=== PATIENT | male | born 1945 | race Caucasian/White ===

== ENCOUNTER → 2016-07-11 | Outpatient (CLI) | payer MEDICARE, OTHER ==
--- NOTE | 2016-07-11 11:12 | XR ---
EXAMINATION TYPE: XR chest 2V DATE OF EXAM: 07/11/2016 11:04 AM COMPARISON: NONE HISTORY: Shortness of breath TECHNIQUE: Frontal and lateral views of the chest are obtained. FINDINGS: Scattered senescent parenchymal changes noted. Hyperinflation compatible with COPD. No evidence for infiltrate. No evidence for atelectasis. Heart size is stable. Mediastinal structures are stable and grossly unremarkable. No evidence for hilar prominence. Degenerative changes dorsal spine. IMPRESSION: 1. No evidence for acute pulmonary disease.
[2016-07-11 11:15] LABS: Basophils # (A) 0.1 k/uL (0-0.2); Basophils % (A) 1 %; CH 31.2; CHCM 35.1; Eosinophils # (A) 0.2 k/uL (0-0.7); Eosinophils % (A) 2 %; HCT 48.4 % (39.0-53.0); HDW 2.73; HGB 16.9 gm/dL (13.0-17.5); Luc # (Auto) 0.24; Luc % (Auto) 2; Lymphocytes # (A) 2.9 k/uL (1.0-4.8); Lymphocytes % (A) 28 %; MCH 31.3 pg (25.0-35.0); MCV 89.3 fL (80.0-100.0); Mean Platelet Volume 8.4; Monocytes # (A) 0.7 k/uL (0-1.0); Monocytes % (A) 7 %; Neutrophils # (A) 6.1 k/uL (1.3-7.7); Neutrophils % (A) 61 %; RBC 5.42 m/uL (4.30-5.90); RDW 14.1 % (11.5-15.5); WBC 10.1 k/uL (3.8-10.6); WBC (Perox) 10.03
[2016-07-11 11:27] LABS: Partial Thromboplastin Time 23.2 sec (22.0-30.0); Prothrombin Time 10.1 sec (9.0-12.0)
[2016-07-11 11:55] LABS: Potassium 4.7 mmol/L (3.5-5.1)
== END ==
LOC: LABPAT 10:31
PROVIDERS: ATTEND Orthopaedic Surgery
DX: Z01.818 Encounter for other preprocedural examination (principal)
CPT/HCPCS: 71020; 80051; 85025; 85610; 85730; 87070

== ENCOUNTER 2016-07-31 08:00 | Inpatient (IN) | payer MEDICARE, OTHER ==
[2016-07-27 09:43] VITALS: BMI 25.3
--- NOTE | 2016-07-30 16:48 | HP ---
DATE OF ADMISSION: 07/31/2016 CHIEF COMPLAINT: Right greater than the left knee pain. HISTORY OF PRESENT ILLNESS: The patient is a 70-year-old retired gentleman who presents with progressive right knee pain for the past several years. It has worsened recently. He notes giving way along with swelling. He has had previous injections with only partial temporary relief. He notes the pain limits his normal function and activities. PAST MEDICAL HISTORY: Significant for hypercholesterolemia, hypertension and arthritis. PAST SURGICAL HISTORY: Negative. CURRENT MEDICATIONS: 1. Aleve. 2. Aspirin. 3. Gabapentin. 4. Hydrochlorothiazide. 5. Lipitor. 6. Losartan. 7. Metoprolol. He denies drug allergies. FAMILY HISTORY: Significant for cancer and heart disease. SOCIAL HISTORY: Significant for 1/2 pack per day tobacco use. Sixteen-point review of systems otherwise reviewed and is noncontributory. On examination, the patient is approximately 5 foot 8, 260 pounds of endomorphic habitus. HEENT exam is nonfocal. Neck is supple. He has painless passive motion of the right hip. Straight leg raise is negative. Active motion of the right knee -8 to 115 degrees of flexion. He is tender about the medial joint line. He has mild effusion. Collaterals are stable, Brent's negative, Kristian's is equivocal. He has genu varum alignment. His distal neurovascular exam appears intact in the right lower extremity. Weight-bearing notch, lateral, and merchant views of the right knee obtained in the office show severe medial and patellofemoral compartment narrowing. IMPRESSION: 1. Right knee severe medial and patellofemoral compartment osteoarthrosis. 2. Increased body mass index. RECOMMENDATIONS: I talked to the patient at length regarding his treatment options. At this point he is quite symptomatic because of pain related to his osteoarthrosis despite extensive conservative measures. After thorough discussion, he opts to proceed with surgery. We will plan to proceed with right total knee arthroplasty. Risks and benefits are discussed at length in layman terms. We will likely institute DVT prophylaxis postoperatively.
[~2016-07-31 08:00] MED LIST: ACETAMINOPHEN TAB 500 MG TAB PO ONE; DEXAMETHASONE SOD PHOSPHATE 10 MG/ML 1 ML VIAL IV ONE; HYDROmorphone 1 MG/ML 1 ML SYRINGE IVP PRN; MELOXICAM 7.5 MG TAB PO ONE; MIDAZOLAM 2 MG/2 ML VIAL IV PRN; ONDANSETRON 4 MG/2 ML VIAL IVP ONE; TRANEXAMIC ACID 1,000 MG in SODIUM CHLORIDE 0.9% 100 ML IVPB ONE; ceFAZolin 2 GM in SODIUM CHLORIDE 0.9% 100 ML IVPB ONE
[2016-07-31] MEDS ORDERED: LIDOCAINE 1% 20 ML VIAL (10MG/ML) FOR IV START INTRADERMA ONE (09:22)
[2016-07-31] MEDS: LACTATED RINGERS 1,000 ML IV SCH (09:22)
[2016-07-31] MEDS ORDERED: ROPIVACAINE 246.25 MG, EPINEPHrine 0.5 MG, KETOROLAC 30 MG, cloNIDine HCL/PF 80 MCG, WA... MISCELLANE ONE ×5 (10:16)
[2016-07-31] MEDS ORDERED: ePHEDrine 50 MG/ML 1 ML AMP ONE (10:57)
[2016-07-31] MEDS ORDERED: fentaNYL (PF) 50 MCG/ML 2 ML AMP ONE (10:57)
[2016-07-31] MEDS ORDERED: TRANEXAMIC ACID 1,000 MG/10 ML VIAL ONE (10:57)
[2016-07-31] MEDS ORDERED: SODIUM CHLORIDE 0.9% 100 ML BAG ONE (10:57)
[2016-07-31] MEDS ORDERED: PROPOFOL 10 MG/ML 20 ML VIAL IV ONE (10:57)
[2016-07-31] MEDS ORDERED: MIDAZOLAM 2 MG/2 ML VIAL ONE (10:57)
[2016-07-31] MEDS ORDERED: GLYCOPYRROLATE 0.2 MG/ML 2 ML VIAL ONE (10:57)
[2016-07-31] MEDS ORDERED: ROPIVACAINE 1,100 MG, SODIUM CHLORIDE 0.9% 330 ML MISCELLANE PRN ×2 (11:19)
[2016-07-31] MEDS ORDERED: ceFAZolin 3,000 MG in SODIUM CHLORIDE 0.9% IRRIGATIO 3,000 ML IRRIGATION ONE (11:36)
[2016-07-31] MEDS ORDERED: LACTATED RINGERS 1,000 ML IV ONE (11:38)
[2016-07-31] MEDS ORDERED: NALOXONE 0.4 MG/ML 1 ML VIAL IV PRN (12:52)
[2016-07-31] MEDS ORDERED: ONDANSETRON 4 MG/2 ML VIAL IVP PRN (12:52)
[2016-07-31] MEDS ORDERED: ACETAMINOPHEN TAB 325 MG TAB PO PRN (12:52)
[2016-07-31] MEDS ORDERED: HYDROcodone/APAP 7.5-325MG 1 EACH TAB PO PRN (12:52)
[2016-07-31] MEDS ORDERED: HYDROmorphone 1 MG/ML 1 ML SYRINGE IVP PRN (12:52)
[2016-07-31] MEDS ORDERED: MAGNESIUM HYDROXIDE 2,400 MG/10 ML CUP PO PRN (12:52)
--- NOTE | 2016-07-31 13:25 | P.OP ---
Date of Procedure: 07/31/16 Preoperative Diagnosis: Right knee severe tricompartmental osteoarthrosis-primary Postoperative Diagnosis: Same Procedure(s) Performed: Right total knee arthroplasty/cemented/cruciate retaining Implants: Depuy Attune CR size 7 cemented femoral component, size 6 cemented tibial component, 9 mm articular surface, 38 mm cemented patellar component. This is a cruciate retaining implant. Anesthesia: regional, local, spinal Surgeon: Demetri Gray Dressing Room Porter #1: Gus Bejarano Estimated Blood Loss (ml): 100 Pathology: other (Bone fragments) Condition: stable Disposition: PACU Indications for Procedure: The patient is a 70-year-old male who presents with progressive right knee pain secondary to osteoarthrosis despite conservative measures. A discussion of the risks and benefits of operative intervention versus continued conservative measures was made with the patient. He opted to proceed. Specific risks of surgery to include infection, neurovascular injury, development of blood clots, possible component loosening, possible component failure need for subsequent procedures was discussed. Informed consent was obtained. Operative Findings: As below Description of Procedure: The patient was brought to the operating room, and after induction of spinal anesthesia the right lower extremity was prepped and draped in normal fashion. The tourniquet was inflated to 270 mmHg. A longitudinal incision extending 3 finger breaths above the superior pole of patella extending to the medial aspect the tibial tubercle was then made. The skin and subcu tissues were divided sharply. A medial parapatellar arthrotomy was performed. The medial soft tissues to include the superficial and deep portions of the medial collateral ligament as well as the medial hamstring tendons were elevated subperiosteally. I felt this was adequate medial release. The patella was everted. A portion of the retropatellar fat pad was excised. The knee was then flexed. The anterior cruciate ligament was sacrificed. Blunt retractors were placed. A starting hole was made in the distal femur 1 cm anterior to the posterior cruciate ligament origin. An intramedullary femoral guide was then gently inserted planning on 5 valgus distal cut with 9 mm distal resection. The cutting block was pinned in place. The distal cut was then made. The posterior referencing sizing guide was utilized. 3 of external rotation was built into the system and verified off the trans-epicondylar axis and the posterior condyles. A felt size 7 was most appropriate. The cutting block was pinned in place. The anterior, posterior, and chamfer cuts were then made. The bony fragments were removed. The slot cut was made with the appropriate guide. The size 7 femoral components placed and was fully seated. There is good anterior to posterior and medial to lateral fit. The peg holes were drilled. The trial component was removed. Attention was then paid towards preparing the proximal tibia. An extra medullary guide was utilized in line with the tibial shaft and second metatarsal distally. I planned on 7 posterior slope. I planned on 2 mm resection from the medial compartment. The cutting block was pinned in place. The posterior cruciate ligament was protected with a retractor. Proximal tibial cut was made. The bone was removed in one fragment. The tibia sized most appropriate size 6. The flexion and extension gaps were checked and felt to be tight. Therefore an additional 2 mm was resected utilizing the cutting block. The bone was removed. The remnants of the medial and lateral menisci were excised at the capsular junction with electrocautery. The posterior osteophytes of the distal femur were carefully removed with a curved osteotome. The trial femoral and tibial components were placed along with a 9 mm articular surface. I was able to obtain full flexion and extension with good stability with varus and valgus stress. After several flexion and extension cycles the tibial rotation was marked with electrocautery in line with the medial one third of the tibial tubercle. Attention was then paid towards preparing the patella. A patella reamer was utilized taking senna 14 mm of bone stock. A good flush cut was made. The patella sized most probably a 38 mm. The peg holes were drilled. The trial components placed. The knee was taken through range of motion. I had good patellofemoral tracking with no hands technique. The trial components were then removed. The tibia was prepared in the appropriate rotation with the appropriate drill and keel punch. Several additional holes made the proximal medial tibia to facilitate cement interdigitation. Pulsatile lavage was then used. The bony surfaces were dried. The flexion and extension gaps were checked and felt to be symmetric. The posterior soft tissues were injected with ropivacaine. The tibial component was then cemented in placed and was fully seated. Excess cement was removed. The femoral component was cemented in placed and was fully seated. Excess cement was removed. The trial 9 mm articular surface was placed and the knee was put in full extension. The patella component cemented in placed and was fully seated. After the cement had sufficiently hardened, the knee was again taken through range of motion. Again I felt there was full range of motion and good stability with varus / valgus stress. The trial articular surface was removed and the final one inserted. This was fully seated. Care taken to avoid any soft tissue interposition. Pulsatile lavage was again utilized. A medial parapatellar arthrotomy was closed with #2 Ethibond suture. The tourniquet was deflated with approximately 70 minutes total tourniquet time. Final hemostasis was obtained with electrocautery. The second dose of IV TXA was given. The subcu changed tissues were reapproximated with interrupted 2-0 Vicryl sutures. The skin was reapproximated with 3-0 subcuticular strata fix suture. Skin tape and adhesive was applied. A sterile dressing was applied. The patient was awoken from sedation and transferred to the recovery room in good condition. Blood loss was estimated at 100 mL. No complications were incurred. Sponge and needle counts were correct at the end the case.
--- NOTE | 2016-07-31 13:56 | XR ---
EXAMINATION TYPE: XR knee limited RT DATE OF EXAM: 07/31/2016 1:33 PM COMPARISON: NONE TECHNIQUE: Two views submitted HISTORY: Post op FINDINGS: There is a prosthetic knee in near anatomic alignment. There is soft tissue edema and emphysema. Samano rgical drain noted. IMPRESSION: 1. Postoperative change. Appears in near-anatomic alignment
[2016-07-31] MEDS: traMADol 50 MG TAB PO SCH ×3 (14:38→21:36)
[2016-07-31 16:14] VITALS: RESP 16
[2016-07-31] MEDS: ceFAZolin 2 GM in SODIUM CHLORIDE 0.9% 100 ML IVPB SCH (17:56)
--- NOTE | 2016-07-31 19:31 | P.ONQ ---
Anesthesiology Proc Note - PNB - Peripheral Nerve Block Performed Right Adductor Canal Indication: Acute Post-Operative Pain, Dx/Pain Location (Right Knee) Specifically requested for management of pain by : Demetri Gray Sedation Type: Sedate with meaningful contact maintained Preparation: Sterile Dressing Position: Supine Catheter: Indwelling Needle Types: Touhy Needle Size: 100mm (4") Needle Gauge: 21, Other (see comment) (Pajunk Needle) Technique: Ultrasound Injectate: 0.5% Ropivacaine (see comment for volume) (30 cc) Blood Aspirated: No Pain Paresthesia on Injection Noted: No Resistance on Injection: Normal Events: Uneventful and Well Tolerated
[2016-07-31] MEDS ORDERED: SENNOSIDES-DOCUSATE SODIUM 1 EACH TAB PO SCH (21:00)
[2016-07-31] MEDS: HYDROcodone/APAP 7.5-325MG 1 EACH TAB PO PRN (21:26)
[2016-07-31] MEDS: GABAPENTIN 400 MG CAP PO SCH (21:34)
--- NOTE | 2016-07-31 23:56 | CONS ---
DATE OF CONSULTATION: 07/31/2016 REASON FOR CONSULTATION: Medical management requested by Dr. Gray. CONSULTATION: This is a very pleasant 70-year-old patient of Dr. Smith who has undergone right total knee arthroplasty. Post-procedure no nausea or vomiting. No chest pain or dizziness. Patient's chronic stable medical conditions include hyperlipidemia, hypertension, rheumatoid arthritis, umbilical hernia. REVIEW OF SYSTEMS: CONSTITUTIONAL: Tired. HEENT: None. RESPIRATORY: None. CARDIOVASCULAR: None. GASTROINTESTINAL: None. GENITOURINARY: None. MUSCULOSKELETAL: Pain in the joints. DERMATOLOGICAL: None. HEMATOLOGICAL: None. LYMPHATIC: None. PSYCHIATRY: None. NEUROLOGICAL: None. PAST HISTORY: 1. Hypertension. 2. Hyperlipidemia. 3. Rheumatoid arthritis. 4. Umbilical hernia. PAST SURGICAL HISTORY: Wound closure on the lower right thigh from injury. SOCIAL HISTORY: Patient has smoked about three-quarter a pack a day for more than 40 years. Alcohol occasionally. Retired. Lives with his sister. FAMILY HISTORY: Cancer, type unknown. HOME MEDICATIONS: 1. Toprol XL 100 mg p.o. daily. 2. Cozaar 50 mg p.o. daily. 3. Hydrochlorothiazide 12.5 p.o. daily. 4. Neurontin 400 mg p.o. t.i.d. 5. Lipitor 40 mg p.o. daily. 6. Aspirin 81 mg p.o. daily. 7. Xarelto 10 mg p.o. daily. ALLERGIES: NONE. On examination, temperature 99, pulse 74, respiration 16, blood pressure 120/63, pulse ox 94% on room air. GENERAL APPEARANCE: Well built; BMI of 41.5. Sitting on bed, not in distress. EYES: Pupils equal. Conjunctivae normal. HEENT: Oral cavity normal. NECK: JVD not raised. Mass not palpable. RESPIRATORY: Effort normal. Slightly decreased breath sounds. CARDIOVASCULAR: First and second sounds normal. No edema. ABDOMEN: Soft, nontender. Liver and spleen not palpable. LYMPHATIC: No lymph node palpable in neck or axillae. PSYCHIATRY: Alert and oriented x3. Mood and affect normal. EXTREMITIES: Right knee in a dressing. INVESTIGATIONS: No blood work from today. ASSESSMENT: 1. Right total knee arthroplasty. 2. Hypertension. 3. Hyperlipidemia. 4. Rheumatoid arthritis. 5. Umbilical hernia. 6. Morbid obesity; body mass index of 41.5. 7. Chronic nicotine dependence. Patient is an active cigarette smoker. PLAN: Patient's home medications are being resumed. Patient is on Xarelto for DVT prophylaxis. Care was discussed with the patient. Patient advised against smoking, given a nicotine patch. Thank you, Dr. Gray.
[2016-08-01] MEDS: ceFAZolin 2 GM in SODIUM CHLORIDE 0.9% 100 ML IVPB SCH (03:00)
[2016-08-01] MEDS: HYDROcodone/APAP 7.5-325MG 1 EACH TAB PO PRN ×2 (03:48→15:23)
[2016-08-01] MEDS: LACTATED RINGERS 1,000 ML IV SCH (07:08)
[2016-08-01 07:29] VITALS: BP 132/67; PULSE 68; TEMP 98.2
[2016-08-01 08:10] LABS: Basophils % (A) 0 %; CH 31.6; CHCM 34.2; Eosinophils % (A) 0 %; HCT 42.6 % (39.0-53.0); HDW 2.51; HGB 14.4 gm/dL (13.0-17.5); Luc % (Auto) 2; Lymphocytes # (A) 2.1 k/uL (1.0-4.8); Lymphocytes % (A) 17 %; MCH 31.3 pg (25.0-35.0); MCHC 33.7 g/dL (31.0-37.0); MCV 92.9 fL (80.0-100.0); Monocytes # (A) 0.7 k/uL (0-1.0); Monocytes % (A) 6 %; Neutrophils # (A) 9.6 k/uL (1.3-7.7); Neutrophils % (A) 76 %; RBC 4.58 m/uL (4.30-5.90); RDW 14.2 % (11.5-15.5); WBC 12.7 k/uL (3.8-10.6); WBC (Perox) 12.48
[2016-08-01] MEDS: GABAPENTIN 400 MG CAP PO SCH ×2 (08:19→15:24)
[2016-08-01] MEDS: traMADol 50 MG TAB PO SCH ×2 (08:19→13:00)
[2016-08-01] MEDS ORDERED: ATORVASTATIN 40 MG TAB PO SCH (09:00)
[2016-08-01] MEDS ORDERED: METOPROLOL SUCCINATE (ER) 100 MG TAB.ER.24H PO SCH (09:00)
[2016-08-01] MEDS ORDERED: LOSARTAN 50 MG TAB PO SCH (09:00)
[2016-08-01] MEDS ORDERED: FAMOTIDINE 20 MG TAB PO SCH (09:00)
[2016-08-01] MEDS ORDERED: RIVAROXABAN 10 MG TAB PO SCH (09:00)
--- NOTE | 2016-08-01 09:38 | P.PN ---
Progress Note - Text Postoperative day # 1 status post total knee arthroplasty, on adductor canal perineural catheter placed for postoperative analgesia. Ropivacaine 0.2% 8 mL per hour through ON-Q pump continuous infusion. Pain is well controlled. On visual analog scale 2/10 . At the site of tourniquet. Knee pain 0 out of 10 on VAS. Patient is taking PRN oral pain medications. Catheter site: Looks Ok. There is no erythema or tenderness. Continue with the current pain management plan and will follow.
--- NOTE | 2016-08-01 12:16 | P.PN ---
Subjective Principal diagnosis: Status post right total knee arthroplasty Patient seen today resting in his hospital chair, his is present at bedside. Patient some very well at this point, pain is well controlled. Urinary catheters been discontinued, he is ambulating well therapy. He denies any chest pain, shortness of breath, fever chills. Objective - Vital Signs Vital signs: Vital Signs Temp 98.2 F 08/01/16 07:00 Pulse 68 08/01/16 07:00 Resp 16 08/01/16 07:00 BP 132/67 08/01/16 07:00 Pulse Ox 95 08/01/16 07:00 Intake & Output 07/31/16 08/01/16 08/01/16 18:59 06:59 18:59 Intake Total 1950 1590 180 Output Total 335 300 Balance 1616 1290 180 Weight 116.573 kg Intake: IV 1950 Intake, IV Titration 700 Amount Lactated Ringers 1,000 ml 600 As IV .[facility] Rx#: [id number] ceFAZolin 2 gm In Sodium 100 Chloride 0.9% 100 ml @ 100 mls/hr IVPB Q8H [facility] Rx#:[id number] Oral 890 180 Output: Urine 235 300 Estimated Blood Loss 100 Other: Voiding Method Indwelling Catheter - Exam Right lower extremity: Incision is clean, dry and intact. Minimal soft tissue swelling and ecchymosis present around the knee. Calf is soft, no tenderness with palpation. His distal neurovascular exam is intact. - Labs CBC & Chem 7: 08/01/16 07:30 Labs: Abnormal Lab Results - Last 24 Hours (Table) 08/01/16 Range/Units 07:30 WBC 12.7 H (3.8-10.6) k/uL Plt Count 120 L (150-450) k/uL Neutrophils # 9.6 H (1.3-7.7) k/uL Assessment and Plan Plan: Assessment: 1. Postop day #1 status post right total knee arthroplasty Plan: 1. Pain control, he'll be discharged home on oral medication 2. GI and DVT prophylaxis, patient will be discharged home on Xarelto 10 mg 3. Wound care was discussed with patient 4. Home nursing and therapy after discharge 5. Medical recommendations 6. Discharge planning: Patient will be discharged home today Time with Patient: Less than 30
--- NOTE | 2016-08-01 12:17 | P.DS ---
Providers Date of admission: 07/31/16 08:43 Expected date of discharge: 08/01/16 Attending physician: Demetri Gray Consults: 07/31/16 12:54 Consult Physician Routine Consulting Provider: Roldan Everett Consult Reason/Comments: Medical Management Do you want consulting provider notified?: Yes Primary care physician: Rodney Smith Hospital Course: Date of admission: 07/31/2016 Date of discharge: 08/01/2016 Admission diagnosis: Status post right total knee arthroplasty Discharge diagnosis: Same Attending physician: Dr. Gray Surgical procedures: Right total knee arthroplasty Brief history: Patient is a 70-year-old male with a history of progressive primary right knee osteoarthritis. At this point patient has failed conservative treatment measures and has opted to proceed with a elective right total knee arthroplasty. Hospital course: Details of patient's surgery can be found in operative report. Patient tolerated the procedure well and was subsequently transported to orthopedic floor. Patient's orthopeidc and medical care was provided daily. Patient had daily laboratory tests performed for evaluation of overall blood counts. Patient had daily physical therapy to include strengthening range of motion as well as education with walker ambulation. Patient had daily CPM usage as part of their physical therapy program. Patient was treated with Xarelto for their postoperative DVT prophylaxis during their inpatient stay. Patient was noted to have a relatively uneventful postoperative course. Patient reported satisfactory pain control with oral pain medications by postoperative day 0. Patient showed satisfactory progress with physical therapy. Patient moved steadily through the program and had no difficulty meeting the goals by postoperative day 1. Given patient's otherwise satisfactory course and having met physical therapy goals, plan is to discharge patient home on postoperative day 1. Discharge condition/disposition: Patient will be discharged home in stable condition. Discharge medications: Instructions are given on resumption of patient's normal daily medications per primary care recommendation, in addition patient will be prescribed [place] 7.5 mg/325 mg, tramadol 50 mg, Colace 100 mg, Pepcid 20 mg, Xarelto 10 mg. Discharge instructions: 1. Wound care and infection precautions, keep incision dry and covered while showering, no lotions, creams, moisturizers. No soaking, tubs, pools, hottubs. Do not scrub over the incision. 2. Weight-bear as tolerated with walker / cane until follow-up. 3. Ice and elevate when necessary. Do not exceed 20 minutes per hour with ice pack. 4. Utilize compression sleeve until seen at first follow up appointment. 5. Visiting nursing care. 6. Home physical therapy including home CPM. 7. Pain meds and anticoagulants per prescription. 8. Pain medication has potential to cause constipation. Increase oral fluid and fiber intake. Contact primary care provider if you have not had a bowel movement within 48 hours after discharge 9. No anti-inflammatory medication until discussed at first post operative visit, this including Motrin, Aleve, Mobic, Diclofenac. 10. Follow up in office at 2 weeks postop with Jarod Bejarano PA-C 11. Follow up with your primary care doctor 7-10 days after discharge. 12. Contact [facility] with any questions, . Procedures: Right total knee arthroplasty Patient Condition at Discharge: Good Plan - Discharge Summary New Discharge Prescriptions: Docusate [Colace] 100 mg PO DAILY #30 capsule Famotidine [Pepcid] 20 mg PO DAILY #30 tablet HYDROcodone/APAP 7.5-325MG [[place] 7.5] 1 - 2 each PO Q6HR PRN #60 tab PRN Reason: Pain Rivaroxaban [Xarelto] 10 mg PO DAILY #12 tab traMADol HCl [Ultram] 50 mg PO Q6H PRN #40 tab PRN Reason: Pain Discharge Medication List Aspirin [Adult Low Dose Aspirin EC] 81 mg PO DAILY 07/27/16 [History] Atorvastatin [Lipitor] 40 mg PO DAILY 07/27/16 [History] Gabapentin [Neurontin] 400 mg PO TID 07/27/16 [History] Hydrochlorothiazide [Hydrodiuril] 12.5 mg PO DAILY 07/27/16 [History] Losartan [Cozaar] 50 mg PO DAILY 07/27/16 [History] Metoprolol Succinate [Toprol XL] 100 mg PO DAILY 07/27/16 [History] Rivaroxaban [Xarelto] 10 mg PO DAILY #12 tab 07/31/16 [Rx] Docusate [Colace] 100 mg PO DAILY #30 capsule 08/01/16 [Rx] Famotidine [Pepcid] 20 mg PO DAILY #30 tablet 08/01/16 [Rx] HYDROcodone/APAP 7.5-325MG [[place] 7.5] 1 - 2 each PO Q6HR PRN #60 tab 05/17/17 [ Rx] traMADol HCl [Ultram] 50 mg PO Q6H PRN #40 tab 08/01/16 [Rx] Follow up Appointment(s)/Referral(s): [facility], [NON-STAFF] - 1 Week Gus Bejarano PAC [PHYSIC[employer] [employer] SUPERVISOR] - 08/15/16 1:30 pm Activity/Diet/Wound Care/Special Instructions: Orthopedic Discharge Instructions: 1. Wound care and infection precautions, keep incision dry and covered while showering, no lotions, creams, moisturizers. No soaking, pools, hot tubs. Do not scrub over incision. 2. Weight-bear as tolerated with walker / cane until follow-up. 3. Ice and elevate when necessary. Do not exceed 20 minutes per hour with ice pack. 4. Utilize compression sleeve until seen at first follow up appointment. 5. Visiting nursing care. 6. Home physical therapy including home CPM. 7. Pain meds and anticoagulants per prescription. 8. Pain medication has potential to cause constipation. Increase oral fluid and fiber intake. Contact primary care provider if you have not had a bowel movement within 48 hours after discharge. 9. No anti-inflammatory medication until discussed at first post operative visit, this including Motrin, Aleve, Mobic, Diclofenac. 10. Follow up in office at 2 weeks postop with Jarod Bejarano PA-C 11. Follow up with your primary care doctor 7-10 days after discharge. 12. Contact [facility] with any questions, . Discharge Disposition: HOME WITH HOME HEALTH SERVICES
--- NOTE | 2016-08-01 12:42 | PN ---
DATE OF SERVICE: 08/01/2016 PRESENTING COMPLAINT: Right knee arthroplasty. INTERVAL HISTORY: Patient is status post right knee arthroplasty, some significant pain is present in the right knee, primary orthopedic service was called. No nausea or vomiting. Did tolerate his breakfast. Patient is in bed. Review of systems done for constitutional, cardiovascular, GI, pulmonary, musculoskeletal; relevant findings as above. Current medications are reviewed. On examination, temperature 98.2, pulse 58, respiration 16, blood pressure 132/67, pulse ox 95% on room air. GENERAL APPEARANCE: Lying in bed, somewhat anxious-appearing. EYES: Pupils equal. Conjunctivae normal. NECK: JVD not raised, mass not palpable. RESPIRATORY: Effort normal. LUNGS: Slight decreased breath sounds. CARDIOVASCULAR: First and second sounds normal. No edema. ABDOMEN: Soft, nontender. Liver and spleen not palpable. PSYCHIATRY: Alert and oriented x3. Mood and affect normal. Right knee in a dressing. INVESTIGATIONS: White count 12.7, hemoglobin 14.4. ASSESSMENT: 1. Right total knee arthroplasty. 2. Hypertension. 3. Hyperlipidemia. 4. Rheumatoid arthritis. 5. Umbilical hernia, chronic. 6. Morbid obesity, body mass index of 41.5. 7. Chronic nicotine dependence. Patient active cigarette smoker. PLAN: Continue current medication and treatment plan. Pain is being addressed by the primary team. Care was discussed with the patient.
== END 2016-08-01 16:21 | disposition home health service (06) | DRG 470 ==
LOC: 2ORMAIN 08:43 → 3SUR 13:17
PROVIDERS: ADMIT Orthopaedic Surgery; ATTEND Orthopaedic Surgery
PROC: 0SRC0J9 Replacement of Right Knee Joint with Synthetic Substitute, Cemented, Open Approach (ICD-10-PCS; principal; 2016-07-31 10:15)
DX: M17.11 Unilateral primary osteoarthritis, right knee (principal); Z68.41 Body mass index [BMI] 40.0-44.9, adult; I10 Essential (primary) hypertension; E66.01 Morbid (severe) obesity due to excess calories; E78.00 Pure hypercholesterolemia, unspecified; E78.5 Hyperlipidemia, unspecified; F17.210 Nicotine dependence, cigarettes, uncomplicated; K42.9 Umbilical hernia without obstruction or gangrene; M06.9 Rheumatoid arthritis, unspecified; M21.161 Varus deformity, not elsewhere classified, right knee; Z79.01 Long term (current) use of anticoagulants; Z79.82 Long term (current) use of aspirin; Z79.899 Other long term (current) drug therapy
CPT/HCPCS: 85025; 88300

== ENCOUNTER → 2016-09-26 | Outpatient (CLI) | payer MEDICARE, OTHER ==
[2016-09-26 10:44] LABS: Basophils # (A) 0.1 k/uL (0-0.2); Basophils % (A) 1 %; CH 31.2; CHCM 35.2; Eosinophils # (A) 0.1 k/uL (0-0.7); Eosinophils % (A) 1 %; HCT 46.5 % (39.0-53.0); HDW 2.77; HGB 16.4 gm/dL (13.0-17.5); Luc % (Auto) 2; Lymphocytes % (A) 34 %; MCH 31.5 pg (25.0-35.0); MCHC 35.3 g/dL (31.0-37.0); MCV 89.3 fL (80.0-100.0); Mean Platelet Volume 8.5; Monocytes # (A) 0.5 k/uL (0-1.0); Monocytes % (A) 6 %; Neutrophils # (A) 5.1 k/uL (1.3-7.7); Neutrophils % (A) 57 %; RDW 14.5 % (11.5-15.5); WBC (Perox) 8.79
[2016-09-26 10:49] LABS: Partial Thromboplastin Time 23.9 sec (22.0-30.0); Prothrombin Time 10.2 sec (9.0-12.0)
[2016-09-26 11:10] LABS: Potassium 4.6 mmol/L (3.5-5.1)
== END | disposition home or self-care (01) ==
LOC: LABWHC1 10:16
PROVIDERS: ATTEND Orthopaedic Surgery
DX: Z01.812 Encounter for preprocedural laboratory examination (principal); M17.12 Unilateral primary osteoarthritis, left knee; Z51.81 Encounter for therapeutic drug level monitoring; Z79.01 Long term (current) use of anticoagulants
CPT/HCPCS: 80051; 85025; 85610; 85730; 87070

== ENCOUNTER 2016-10-23 08:54 | Inpatient (IN) | payer MEDICARE, OTHER ==
--- NOTE | 2016-10-22 14:13 | HP ---
CHIEF COMPLAINT: Left knee pain. HISTORY OF PRESENT ILLNESS: Patient is a 70-year-old gentleman who presents with progressive left knee pain secondary to osteoarthrosis despite conservative measures. He notes he is having pain with normal activities that limit him. He has tried previous injections with partial temporary relief. PAST MEDICAL HISTORY: Significant for arthritis, hypertension, hypercholesterolemia. PAST SURGICAL HISTORY: Significant for right total knee arthroplasty. CURRENT MEDICATIONS: 1. Aleve. 2. Aspirin. 3. Gabapentin. 4. Hydrochlorothiazide. 5. Lipitor. 6. Losartan. 7. Metoprolol. He denies drug allergies. Family history is significant for cancer and heart disease. Social history is significant for 1/2 pack per day tobacco use. A 16-point review of systems otherwise is reviewed with the patient and is noncontributory. On examination, the patient is approximately 5 foot 8, 260 pounds of endomorphic habitus. HEENT exam is nonfocal, neck is supple. He has painless passive motion of his left hip, straight leg raise is negative. Active motion of the left knee -8 to 125 degrees of flexion. He has a mild effusion. He tender about the medial joint line. Collaterals are stable, Brent is negative, Kristian's is equivocal. His distal neurovascular exam appears to be intact in the left lower extremity. Weight-bearing, notch, lateral and Merchant views of the left knee obtained in the office show severe medial and patellofemoral compartment narrowing. IMPRESSION: 1. Left knee severe medial and patellofemoral compartment osteoarthrosis. 2. Increased body mass index. RECOMMENDATIONS: I talked to the patient at length regarding his treatment options. At this point, he opts to proceed with surgery. Will plan to proceed with left total knee arthroplasty. Risks and benefits were discussed at length in layman's terms. We will likely institute DVT prophylaxis postoperatively. CHUYITA
[~2016-10-23 08:54] MED LIST changes: -MIDAZOLAM 2 MG/2 ML VIAL IV PRN
[2016-10-23] MEDS: LACTATED RINGERS 1,000 ML IV SCH ×4 (09:39→23:37)
[2016-10-23] MEDS ORDERED: MIDAZOLAM 2 MG/2 ML VIAL IVP ONE (10:05)
[2016-10-23] MEDS ORDERED: SODIUM CHLORIDE 0.9% 100 ML BAG ONE (11:12)
[2016-10-23] MEDS ORDERED: MIDAZOLAM 2 MG/2 ML VIAL ONE (11:12)
[2016-10-23] MEDS ORDERED: ePHEDrine SULFATE/0.9% NACL/PF 50 MG/5 ML SYRINGE IV ONE (11:12)
[2016-10-23] MEDS ORDERED: PROPOFOL 10 MG/ML 20 ML VIAL IV ONE (11:12)
[2016-10-23] MEDS ORDERED: TRANEXAMIC ACID 1,000 MG/10 ML VIAL ONE (11:12)
[2016-10-23] MEDS ORDERED: fentaNYL (PF) 50 MCG/ML 2 ML AMP ONE (11:12)
[2016-10-23] MEDS ORDERED: ceFAZolin 3,000 MG in SODIUM CHLORIDE 0.9% IRRIGATIO 3,000 ML IRRIGATION ONE (11:41)
[2016-10-23] MEDS ORDERED: ROPIVACAINE 246.25 MG, EPINEPHrine 0.5 MG, KETOROLAC 30 MG, cloNIDine HCL/PF 80 MCG, WA... MISCELLANE ONE ×5 (11:58)
[2016-10-23] MEDS ORDERED: ROPIVACAINE 1,100 MG, SODIUM CHLORIDE 0.9% 330 ML MISCELLANE PRN ×2 (12:08)
[2016-10-23] MEDS ORDERED: LACTATED RINGERS 1,000 ML IV ONE (12:30)
[2016-10-23] MEDS ORDERED: NALOXONE 0.4 MG/ML 1 ML VIAL IV PRN (13:00)
[2016-10-23] MEDS ORDERED: ONDANSETRON 4 MG/2 ML VIAL IVP PRN (13:00)
[2016-10-23] MEDS ORDERED: HYDROcodone/APAP 7.5-325MG 1 EACH TAB PO PRN (13:00)
[2016-10-23] MEDS ORDERED: HYDROmorphone 1 MG/ML 1 ML SYRINGE IVP PRN ×2 (13:00)
[2016-10-23] MEDS ORDERED: traMADol 50 MG TAB PO PRN (13:00)
[2016-10-23] MEDS ORDERED: MAGNESIUM HYDROXIDE 2,400 MG/10 ML CUP PO PRN (13:00)
[2016-10-23 13:35] VITALS: RESP 16
--- NOTE | 2016-10-23 13:40 | P.OP ---
Date of Procedure: 10/23/16 Preoperative Diagnosis: Left knee severe tricompartmental osteoarthrosis-primary Postoperative Diagnosis: Same Procedure(s) Performed: Left total knee arthroplasty-cemented- Implants: Depuy Attune a 7 cemented femoral component, size 6 cemented tibial component, 9 mm articular surface, 38 mm cemented patellar component. This is a cruciate retaining implant. Anesthesia: regional, local, spinal Surgeon: Demetri Gray Nuclear Process Engineer #1: Gus Bejarano Estimated Blood Loss (ml): 50 Pathology: other (Bone fragments) Condition: stable Disposition: PACU Indications for Procedure: The patient is a 70-year-old male who presents with progressive left knee pain secondary to osteoarthrosis despite extensive conservative measures. A discussion of the risks and benefits of operative intervention versus continued conservative measures was made with patient. He opted to proceed with surgery. Operative risks to include infection, neurovascular injury, development of blood clots, possible component loosening, possible component failure and need for subsequent procedures was discussed. Informed consent was obtained. Operative Findings: As below Description of Procedure: Patient was brought to the operating room, and after induction of spinal anesthesia the left lower extremity was prepped and draped in normal fashion. The limb was elevated to facilitate exsanguination. The tourniquet was inflated to 270 mmHg. A longitudinal incision extending 3 finger breaths above the superior pole of the patella extension medial aspect the tibial tubercle was then made. The skin and subcu changed tissues were then divided sharply. A retro-cautery was used for hemostasis. A medial parapatellar arthrotomy was then performed. The patella was everted. A portion of the retropatellar fat pad was excised sharply. The medial soft tissues to include the superficial and deep portions of the medial collateral ligament as well as the medial hamstring tendons were elevated subperiosteally. The knee was flexed. The anterior cruciate ligament was sacrificed. Blunt retractors were placed. A starting hole was made in the distal femur 1 cm anterior to posterior cruciate ligament origin. An extra medullary guide was gently inserted planning on 5 valgus distal cut with 9 mm distal resection. The cutting block was pinned in place. The distal cut was made. The posterior referencing sizing guide was utilized. I felt size 7 was most appropriate. 3 of external rotation was built into the system and verified off the trans-epicondylar axis and the posterior condyles. The cutting block was pinned in place. The anterior, posterior, and chamfer cuts were made. The bone fragments were removed. The sulcus cut was then made with the appropriate guide. The trial size 7 component was placed and was fully seated. There was good anterior to posterior and medial to lateral fit. The distal peg holes were drilled. The trial component was removed. Attention was then paid towards preparing the proximal tibia. An extra medullary guide was utilized in line with the tibial shaft and second metatarsal distally. I planned on 7 posterior slope. I planned on 2 mm resection from the medial compartment. The cutting block was pinned in place. The posterior cruciate ligament was protected with a retractor. The proximal tibial cut was made in the bone removed in one fragment. The tibia sized most appropriate size 6. The remnants of the medial and lateral menisci were excised the capsule junction with electrocautery. The trial femoral and tibial components were placed along with a 9 mm articular surface. I was able to obtain full flexion and extension with good stability with varus valgus stress. After several flexion and extension cycles the tibial rotation was marked with electrocautery in line with the medial one third of the tibial tubercle. Attention was then paid towards preparing the patella. A patella reamer was utilized taking this down to 15 mm of bone stock. A good flush cut was made. The patella sized most appropriately 38 mm. The peg holes were drilled. The trial components placed. The knee was taken through range of motion. I had good patellofemoral tracking with no hands technique. The trial components were then removed. The tibia was then prepared in the appropriate rotation with appropriate drill and keel punch. The posterior osteophytes off the distal femur were carefully remove the curved osteotome. The flexion and extension gaps were checked and felt to be symmetric. Tear soft tissues were injected with ropivacaine. The bony surfaces were prepared with pulsatile lavage and dried. I did make several additional drill holes in the proximal medial tibia to facilitate cement interdigitation. The tibial component was then cemented in placed and was fully seated. Excess cement was removed. The femoral component was cemented in placed and was fully seated. Excess cement was removed. The trial 9 mm articular surface was placed and the knee was put in full extension. The patellar component cemented in placed and was fully seated. Excess cement was removed. After the cement had sufficiently hardened, the knee was again taken through range of motion and was felt to be stable in flexion and extension with varus and valgus stress. The trial articular surface was removed and the final 9 mm articular surface was placed. This was fully seated. Care taken to avoid any soft tissue interposition. Pulsatile lavage was again utilized. The medial parapatellar arthrotomy was closed with #2 Ethibond suture. Tourniquet was deflated the proximal a 75 minutes total tourniquet time. Final hemostasis was obtained with electrocautery. The subcutaneous tissues were reapproximated with interrupted 2-0 Vicryl sutures. The skin was reapproximated with 3-0 subcuticular strata fix suture. Skin tape and adhesive was applied. A sterile dressing was applied. The patient was awoken from sedation and transferred to recovery room in good condition. Blood loss was estimated at 50 mL. No complications were incurred. Sponge and needle counts were correct in the case.
--- NOTE | 2016-10-23 14:20 | XR ---
Limited left knee HISTORY: Postop left total knee arthroplasty 2 views of the left knee No comparisons Patient is status post left knee arthroplasty. There is an indwelling drain. Alignment is maintained. Lucency in the soft tissues compatible with postop state. IMPRESSION: Orthopedic follow-up.
[2016-10-23] MEDS: ceFAZolin 2 GM in SODIUM CHLORIDE 0.9% 100 ML IVPB SCH ×2 (17:11→23:34)
--- NOTE | 2016-10-23 17:50 | P.CONS ---
History of Present Illness - Reason for Consult Consult date: 10/23/16 Medical management Requesting physician: Demetri Gray - Chief Complaint Left knee surgery - History of Present Illness Consultation: This is a pleasant 70-year-old of Dr. Smith. Patient has undergone a left total knee arthroplasty. Some pain is present. No nausea vomiting. Sitting up in bed. Chronic stable medical conditions include hyperlipidemia, hypertension, osteoarthritis, medical hernia and history of atrial fibrillation for which he takes Xarelto. No nausea vomiting or chest pain. No dizziness. GEN.: None EYES: None HEENT: None NECK: None RESPIRATORY: None CARDIOVASCULAR: None GASTROINTESTINAL: None GENITOURINARY: None MUSCULOSKELETAL: Pain in the joints LYMPHATICS: None HEMATOLOGICAL: None PSYCHIATRY: None NEUROLOGICAL: None. Significant past medical history: Hyperlipidemia, hypertension, osteoarthritis, medical hernia, prostate cyst, remote history of atrial figuration on Xarelto Past surgical history: Joint replacement, Social history: Smokes a pack a day for 40 years, alcohol occasionally, lives with his sister Family history: Cancer type unknown Home medications: Reviewed in the computer ALLERGIES: None VITAL SIGNS: Afebrile, pulse 72, respirations 16, blood pressure 123/58, 95% on 2 L GENERAL: Average built BMI 38.7, sitting up in bed, comfortable. EYES: Pupils equal. Conjunctiva normal. HEENT: External appearance of nose and ears normal, oral cavity grossly normal. NECK: JVD not raised; masses not palpable. HEART: First and second heart sounds are normal; no edema. LUNGS:[ Respiratory rate normal; decreased breath sounds. ABDOMEN: Soft, nontender, liver spleen not palpable, no masses palpable. LYMPHATICS: No lymph nodes palpable in the axilla and neck. PSYCH: Alert and oriented x3; mood and affect normal. NEUROLOGICAL: Cranial nerves grossly intact; no facial asymmetry, power and sensation grossly intact. 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 Continue with Xarelto. Care was discussed with the patient and questions were answered. Thank you Dr. Reynolds Paroxysmal atrial fibrillation chronically on Xarelto Past Medical History Past Medical History: Hyperlipidemia, Hypertension, Osteoarthritis (OA), Prostate Disorder, Rheumatoid Arthritis (RA) Additional Past Medical History / Comment(s): heart murmur, umbilical hernia, "two cysts on prostate" History of Any Multi-Drug Resistant Organisms: None Reported Past Surgical History: Joint Replacement Additional Past Surgical History / Comment(s): wound closure on lower rt thigh from injury, right knee replaced in July 2016 Past Anesthesia/Blood Transfusion Reactions: No Reported Reaction Smoking Status: Current every day smoker - Past Family History Mother Family Medical History: Cancer Medications and Allergies Home Medications Medication Instructions Recorded Confirmed Type Aspirin [Adult Low Dose Aspirin EC] 81 mg PO DAILY 07/27/16 10/23/16 History Atorvastatin [Lipitor] 40 mg PO DAILY 07/27/16 10/23/16 History Gabapentin [Neurontin] 400 mg PO TID 07/27/16 10/23/16 History Hydrochlorothiazide [Hydrodiuril] 12.5 mg PO DAILY 07/27/16 10/23/16 History Losartan [Cozaar] 50 mg PO DAILY 07/27/16 10/23/16 History Metoprolol Succinate [Toprol XL] 100 mg PO DAILY 07/27/16 10/23/16 History Phytonadione [Vitamin K] 5 mg PO DAILY 10/16/16 10/23/16 History Allergies Allergy/AdvReac Type Severity Reaction Status Date / Time No Known Allergies Allergy Verified 10/23/16 09:18
[2016-10-23] MEDS: HYDROcodone/APAP 7.5-325MG 1 EACH TAB PO PRN (17:56)
[2016-10-23] MEDS ORDERED: NICOTINE POLACRILEX 2 MG GUM BUCCAL PRN (18:44)
[2016-10-23] MEDS: GABAPENTIN 400 MG CAP PO SCH ×2 (19:46→22:44)
[2016-10-23] MEDS: ATORVASTATIN 40 MG TAB PO SCH (19:47)
--- NOTE | 2016-10-23 19:57 | P.ONQ ---
Anesthesiology Proc Note - PNB - Peripheral Nerve Block Performed Left Adductor Canal Infusion Indication: Acute Post-Operative Pain, Dx/Pain Location (Left Knee) Sedation Type: Sedate with meaningful contact maintained Preparation: Sterile Dressing Position: Supine Catheter: Indwelling Needle Types: Other (see comment) (Norberto) Needle Size: 100mm (4") Technique: Ultrasound Injectate: 0.5% Ropivacaine (see comment for volume) (30 cc) Blood Aspirated: No Pain Paresthesia on Injection Noted: No Resistance on Injection: Normal Events: Uneventful and Well Tolerated
[2016-10-23] MEDS ORDERED: SENNOSIDES-DOCUSATE SODIUM 1 EACH TAB PO SCH (21:00)
[2016-10-23 21:03] VITALS: BMI 40.1
[2016-10-24] MEDS: HYDROcodone/APAP 7.5-325MG 1 EACH TAB PO PRN ×3 (00:09→14:12)
[2016-10-24 02:29] VITALS: TEMP 97.8
--- NOTE | 2016-10-24 07:10 | P.PN ---
Progress Note - Text Postoperative day # 1 status post total knee arthroplasty, on adductor canal perineural catheter placed for postoperative analgesia. Ropivacaine 0.2% 8 mL per hour through ON-Q pump continuous infusion. Pain is well controlled. On visual analog scale 2/10 Patient is taking PRN oral pain medications. Catheter site: Looks Ok. There is no erythema or tenderness. Continue with the current pain management plan and will follow.
[2016-10-24 07:27] LABS: Basophils % (A) 0 %; CH 31.2; CHCM 34.7; Eosinophils % (A) 0 %; HCT 38.3 % (39.0-53.0); HDW 2.71; HGB 13.5 gm/dL (13.0-17.5); Luc # (Auto) 0.23; Luc % (Auto) 2; Lymphocytes # (A) 1.9 k/uL (1.0-4.8); Lymphocytes % (A) 16 %; MCH 31.7 pg (25.0-35.0); MCHC 35.2 g/dL (31.0-37.0); MCV 90.2 fL (80.0-100.0); Mean Platelet Volume 8.7; Monocytes # (A) 0.6 k/uL (0-1.0); Monocytes % (A) 5 %; Neutrophils % (A) 76 %; RBC 4.24 m/uL (4.30-5.90); RDW 13.9 % (11.5-15.5); WBC 11.9 k/uL (3.8-10.6); WBC (Perox) 12.58
[2016-10-24 08:16] VITALS: BP 149/67; PULSE 64
[2016-10-24] MEDS ORDERED: RIVAROXABAN 10 MG TAB PO SCH (09:00)
[2016-10-24] MEDS ORDERED: LOSARTAN 50 MG TAB PO SCH (09:00)
[2016-10-24] MEDS ORDERED: METOPROLOL SUCCINATE (ER) 100 MG TAB.ER.24H PO SCH (09:00)
[2016-10-24] MEDS ORDERED: FAMOTIDINE 20 MG TAB PO SCH (09:00)
[2016-10-24] MEDS: GABAPENTIN 400 MG CAP PO SCH (10:17)
[2016-10-24] MEDS: ATORVASTATIN 40 MG TAB PO SCH (10:17)
--- NOTE | 2016-10-24 11:05 | P.PN ---
Subjective Principal diagnosis: Status post left total knee arthroplasty Patient seen today resting in his hospital chair, he appears comfortable. His pain is well-controlled at this time. He's ambulated well with therapy. He denies any chest pain, shortness of breath, abdominal discomfort, fever or chills. Objective - Vital Signs Vital signs: Vital Signs Temp 97.8 F 10/24/16 07:00 Pulse 64 10/24/16 07:00 Resp 16 10/24/16 07:00 BP 149/67 10/24/16 07:00 Pulse Ox 95 10/24/16 07:00 Intake & Output 10/23/16 10/24/16 10/24/16 18:59 06:59 18:59 Intake Total 1401 1010 300 Output Total 450 1380 Balance 951 -370 300 Weight 113 kg Intake: IV 1401 Oral 1010 300 Output: Drainage 180 Left Knee 180 Urine 400 1200 Estimated Blood Loss 50 Other: Voiding Method Indwelling Catheter Indwelling Catheter - Exam Left lower extremity: Incision is clean, dry, and intact. Minimal soft tissue swelling present around the knee. Calf is soft, no tenderness with palpation. Plantar flexion, dorsiflexion, EHL, FHL are intact. Sensory exam to light touch throughout that extremities intact, dorsal pedis pulses 2+. - Labs CBC & Chem 7: 10/24/16 07:03 Labs: Abnormal Lab Results - Last 24 Hours (Table) 10/24/16 Range/Units 07:03 WBC 11.9 H (3.8-10.6) k/uL RBC 4.24 L (4.30-5.90) m/uL Hct 38.3 L (39.0-53.0) % Plt Count 134 L (150-450) k/uL Neutrophils # 9.0 H (1.3-7.7) k/uL Assessment and Plan Plan: Assessment: 1. Postop day #1 status post left total knee arthroplasty Plan: 1. Pain control, we'll discharge home on oral medications 2. Encouraged incentive spirometer 3. Continue work with therapy 4. Ice and elevate/daily dressing changes 5. Medical recommendations 6. GI and DVT prophylaxis, continue Xarelto 10 mg 7. Discharge planning: Patient will be discharged home today pending he urinates on his own Time with Patient: Less than 30
--- NOTE | 2016-10-24 11:10 | P.DS ---
Providers Date of admission: 10/23/16 08:54 Expected date of discharge: 10/24/16 Attending physician: Demetri Gray Consults: 10/23/16 13:03 Consult Physician Routine Consulting Provider: Roldan Everett Consult Reason/Comments: Medical Management Do you want consulting provider notified?: Yes Primary care physician: Rodney Smith Hospital Course: Date of admission: 10/23/2016 Date of discharge: 10/24/2016 Admission diagnosis: Status post left total knee arthroplasty Discharge diagnosis: Same Attending physician: Dr. Gray Surgical procedures: Left total knee arthroplasty Brief history: Patient is a 62-year-old male with a history of progressive primary left knee osteoarthritis. At this point patient has failed conservative treatment measures and has opted to proceed with a elective left total knee arthroplasty. Hospital course: Details of patient's surgery can be found in operative report. Patient tolerated the procedure well and was subsequently transported to orthopedic floor. Patient's orthopeidc and medical care was provided daily. Patient had daily laboratory tests performed for evaluation of overall blood counts. Patient had daily physical therapy to include strengthening range of motion as well as education with walker ambulation. Patient had daily CPM usage as part of their physical therapy program. Patient was treated with Xarelto for their postoperative DVT prophylaxis during their inpatient stay. Patient was noted to have a relatively uneventful postoperative course. Patient reported satisfactory pain control with oral pain medications by postoperative day 0. Patient showed satisfactory progress with physical therapy. Patient moved steadily through the program and had no difficulty meeting the goals by postoperative day 1. Given patient's otherwise satisfactory course and having met physical therapy goals, plan is to discharge patient home on postoperative day 1. Discharge condition/disposition: Patient will be discharged home in stable condition. Discharge medications: Instructions are given on resumption of patient's normal daily medications per primary care recommendation, in addition patient will be prescribed Cornell 7.5 mg/325 mg, tramadol 50 mg, Colace 100 mg, Pepcid 20 mg, Xarelto 10 mg. Discharge instructions: 1. Wound care and infection precautions, keep incision dry and covered while showering, no lotions, creams, moisturizers. No soaking, tubs, pools, hottubs. Do not scrub over the incision. 2. Weight-bear as tolerated with walker / cane until follow-up. 3. Ice and elevate when necessary. Do not exceed 20 minutes per hour with ice pack. 4. Utilize compression sleeve until seen at first follow up appointment. 5. Visiting nursing care. 6. Home physical therapy including home CPM]. 7. Pain meds and anticoagulants per prescription. 8. Pain medication has potential to cause constipation. Increase oral fluid and fiber intake. Contact primary care provider if you have not had a bowel movement within 48 hours after discharge 9. No anti-inflammatory medication until discussed at first post operative visit, this including Motrin, Aleve, Mobic, Diclofenac. 10. Follow up in office at 2 weeks postop with Jarod Bejarano PA-C 11. Follow up with your primary care doctor 7-10 days after discharge. 12. Contact [facility] with any questions, . Procedures: Left total knee arthroplasty Patient Condition at Discharge: Good Plan - Discharge Summary New Discharge Prescriptions: New Rivaroxaban [Xarelto] 10 mg PO DAILY #12 tab Docusate [Colace] 100 mg PO DAILY #30 capsule Famotidine [Pepcid] 20 mg PO DAILY #30 tablet HYDROcodone/APAP 7.5-325MG [Cornell 7.5] 1 - 2 each PO Q6HR PRN #60 tab PRN Reason: Pain traMADol HCl [Ultram] 50 mg PO Q6H PRN #40 tab PRN Reason: Pain No Action Aspirin [Adult Low Dose Aspirin EC] 81 mg PO DAILY Metoprolol Succinate [Toprol XL] 100 mg PO DAILY Hydrochlorothiazide [Hydrodiuril] 12.5 mg PO DAILY Gabapentin [Neurontin] 400 mg PO TID Atorvastatin [Lipitor] 40 mg PO DAILY Losartan [Cozaar] 50 mg PO DAILY Phytonadione [Vitamin K] 5 mg PO DAILY Discharge Medication List Aspirin [Adult Low Dose Aspirin EC] 81 mg PO DAILY 07/27/16 [History] Atorvastatin [Lipitor] 40 mg PO DAILY 07/27/16 [History] Gabapentin [Neurontin] 400 mg PO TID 07/27/16 [History] Hydrochlorothiazide [Hydrodiuril] 12.5 mg PO DAILY 07/27/16 [History] Losartan [Cozaar] 50 mg PO DAILY 07/27/16 [History] Metoprolol Succinate [Toprol XL] 100 mg PO DAILY 07/27/16 [History] Phytonadione [Vitamin K] 5 mg PO DAILY 10/16/16 [History] Rivaroxaban [Xarelto] 10 mg PO DAILY #12 tab 10/23/16 [Rx] Docusate [Colace] 100 mg PO DAILY #30 capsule 10/24/16 [Rx] Famotidine [Pepcid] 20 mg PO DAILY #30 tablet 10/24/16 [Rx] HYDROcodone/APAP 7.5-325MG [Cornell 7.5] 1 - 2 each PO Q6HR PRN #60 tab 10/24/16 [ Rx] traMADol HCl [Ultram] 50 mg PO Q6H PRN #40 tab 10/24/16 [Rx] Follow up Appointment(s)/Referral(s): Gus Bejarano, FLEX [PHYSICIAN [employer] AUDITOR] - 2 Weeks Activity/Diet/Wound Care/Special Instructions: Orthopedic Discharge Instructions: 1. Wound care and infection precautions, keep incision dry and covered while showering, no lotions, creams, moisturizers. No soaking, pools, hot tubs. Do not scrub over incision. 2. Weight-bear as tolerated with walker / cane until follow-up. 3. Ice and elevate when necessary. Do not exceed 20 minutes per hour with ice pack. 4. Utilize compression sleeve until seen at first follow up appointment. 5. Visiting nursing care. 6. Home physical therapy including home CPM. 7. Pain meds and anticoagulants per prescription. 8. Pain medication has potential to cause constipation. Increase oral fluid and fiber intake. Contact primary care provider if you have not had a bowel movement within 48 hours after discharge. 9. No anti-inflammatory medication until discussed at first post operative visit, this including Motrin, Aleve, Mobic, Diclofenac. 10. Follow up in office at 2 weeks postop with Jarod Bejarano PA-C 11. Follow up with your primary care doctor 7-10 days after discharge. 12. Contact [facility] with any questions, . Discharge Disposition: HOME WITH HOME HEALTH SERVICES
[2016-10-24] MEDS: LACTATED RINGERS 1,000 ML IV SCH (12:42)
--- NOTE | 2016-10-25 01:02 | P.PN ---
Progress Note - Text DATE OF SERVICE: 10/24/2016 PRESENTING COMPLAINT: Knee pain INTERVAL HISTORY: This is a 70-year-old patient who is status post left total knee arthroplasty. 10/24/2016: Status post left total knee arthroplasty, some pain remains. Medication works well. No nausea or vomiting, tolerating his diet eating 50-75% of each meal. Sitting up in the bed agreeable to work with physical therapy. REVIEW OF SYSTEMS: Done for constitutional ,cardiovascular, GI, pulmonary with relevant findings as above. CURRENT MEDICATIONS [place], Lipitor, cefazolin, Neurontin, Toprol-XL, Xarelto PHYSICAL EXAM VITAL SIGNS: Temperature 97.8, pulse 64, respiratory rate 16, blood pressure 149/67, oxygen saturation 95% on 2 L. GENERAL APPEARANCE: Lying in bed, not in distress. EYES: Pupils equal. Conjunctiva normal. NECK: JVD not raised. Mass not palpable. RESPIRATORY: Respiratory effort normal. Lungs clear to auscultation. CARDIOVASCULAR: First and second sounds normal. No edema. ABDOMEN: Soft. Liver and spleen not palpable. No tenderness. No mass palpable. PSYCHIATRY: Alert and oriented x3. Mood and affect normal. NEUROLOGICAL: Cranial nerves grossly intact. No facial asymmetry. Power and sensation grossly intac MUSCULOSKELETAL: Left knee dressing intact no drainage noted. INVESTIGATIONS: White blood cell count 11.9, hemoglobin 13.5, platelet count 134 ASSESSMENT: Left total knee arthroplasty Leukocytosis, as an acute phase reactant secondary to surgery. Hyperlipidemia Essential hypertension Primary osteoarthritis multiple joints bilateral Chronic umbilical daren PLAN: Continue pain medication, anticoagulation with Xarelto. Discharge planning for today. Plan of care discussed with the patient and he is in agreement we'll continue to monitor closely HAND GLUER AND SLICER statement: Patient was seen and examined by nurse practitioner Edilma Jacinto and all elements of the case discussed with attending Dr. Everett
== END 2016-10-24 16:07 | disposition home health service (06) | DRG 470 ==
LOC: 2ORMAIN 08:54 → 3SUR 13:39
PROVIDERS: ADMIT Orthopaedic Surgery; ATTEND Orthopaedic Surgery
PROC: 0SRD0J9 Replacement of Left Knee Joint with Synthetic Substitute, Cemented, Open Approach (ICD-10-PCS; principal; 2016-10-23 10:40)
DX: M17.12 Unilateral primary osteoarthritis, left knee (principal); I48.0 Paroxysmal atrial fibrillation; M06.9 Rheumatoid arthritis, unspecified; I10 Essential (primary) hypertension; E78.5 Hyperlipidemia, unspecified; D72.829 Elevated white blood cell count, unspecified; E78.00 Pure hypercholesterolemia, unspecified; Z96.651 Presence of right artificial knee joint; K42.9 Umbilical hernia without obstruction or gangrene; Z79.82 Long term (current) use of aspirin; Z79.899 Other long term (current) drug therapy; Z79.1 Long term (current) use of non-steroidal anti-inflammatories (NSAID); Z72.0 Tobacco use; Z79.01 Long term (current) use of anticoagulants
CPT/HCPCS: 85025; 88300

== ENCOUNTER → 2019-04-29 | Day surgery (SDC) | payer MEDICARE, OTHER ==
[2019-04-27 10:38] VITALS: BMI 40.7
[~2019-04-29] MED LIST changes: -ACETAMINOPHEN TAB 500 MG TAB PO ONE; -DEXAMETHASONE SOD PHOSPHATE 10 MG/ML 1 ML VIAL IV ONE; -HYDROmorphone 1 MG/ML 1 ML SYRINGE IVP PRN; +LACTATED RINGERS 1,000 ML IV SCH; +LIDOCAINE 1% 20 ML VIAL (10MG/ML) FOR IV START INTRADERMA PRN; +LIDOCAINE 1% INJ 10MG/ML (20 ML MDV) ONE; -MELOXICAM 7.5 MG TAB PO ONE; -ONDANSETRON 4 MG/2 ML VIAL IVP ONE; +PROPOFOL 10 MG/ML 20 ML VIAL IV ONE; -TRANEXAMIC ACID 1,000 MG in SODIUM CHLORIDE 0.9% 100 ML IVPB ONE; -ceFAZolin 2 GM in SODIUM CHLORIDE 0.9% 100 ML IVPB ONE
--- NOTE | 2019-04-29 08:02 | P.GSHP ---
History of Present Illness H&P Date: 04/29/19 CHIEF COMPLAINT: Colon screen HISTORY OF PRESENT ILLNESS: The patient is a 73-year-old male who presents for colon screen. Lower endoscopy was offered for further evaluation and management. PAST MEDICAL HISTORY: Please see list. PAST SURGICAL HISTORY: Please see list. MEDICATIONS: Please see list. ALLERGIES: Please see list. SOCIAL HISTORY: No illicit drug use FAMILY HISTORY: No reports of Crohn disease or ulcerative colitis. REVIEW OF ORGAN SYSTEMS: CONSTITUTIONAL: No reports of fevers or chills. PHYSICAL EXAM: VITAL SIGNS: Stable GENERAL: Well-developed pleasant in no acute distress. HEENT: No scleral icterus. Extraocular movements grossly intact. Moist buccal mucosa. NECK: Supple without lymphadenopathy. CHEST: Unlabored respirations. Equal bilateral excursions. CARDIOVASCULAR: Regular rate and rhythm. Distal 2+ pulses. ABDOMEN: Soft, nontender, nondistended. MUSCULOSKELETAL: No clubbing, cyanosis, or edema. ASSESSMENT: 1. Colon screen. PLAN: 1. 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, rt foot drop, juan jose knee replacement, wound closure on lower rt thigh from injury Past Anesthesia/Blood Transfusion Reactions: No Reported Reaction Smoking Status: Current every day smoker - Past Family History Mother Family Medical History: Cancer Medications and Allergies Home Medications Medication Instructions Recorded Confirmed Type Aspirin [Adult Low Dose Aspirin EC] 81 mg PO DAILY 07/27/16 04/27/19 History Atorvastatin [Lipitor] 40 mg PO DAILY 07/27/16 04/27/19 History Hydrochlorothiazide [Hydrodiuril] 12.5 mg PO DAILY 07/27/16 04/27/19 History Losartan [Cozaar] 50 mg PO QAM 07/27/16 04/27/19 History Metoprolol Succinate [Toprol XL] 100 mg PO QAM 07/27/16 04/27/19 History Cholecalciferol [Vitamin D3 (25 2,000 unit PO DAILY 04/27/19 04/27/19 History Mcg = 1000 Iu)] Allergies Allergy/AdvReac Type Severity Reaction Status Date / Time No Known Allergies Allergy Verified 04/27/19 10:33
[2019-04-29 09:54] VITALS: RESP 18; TEMP 97.6
--- NOTE | 2019-04-29 10:36 | P.PCN ---
Date of Procedure: 04/29/19 Description of Procedure: PREOPERATIVE DIAGNOSIS: Personal history of colon polyps Colonoscopy screening POSTOPERATIVE DIAGNOSIS: Personal history of colon polyps Colonoscopy screening Tubular adenoma hepatic flexure Tubular adenoma transverse colon Sigmoid diverticulosis Sigmoid colon polyps OPERATION: Colonoscopy to the ileocecal valve and appendiceal orifice. Colonoscopy with multiple hot snare polypectomies Colonoscopy with cold forceps biopsies SURGEON: Jackeline Fleming MD. ANESTHESIA: MAC. INDICATIONS: The patient is an 73-year-old male who presents with personal history of colon polyps. Last colonoscopy within 5 years. Benefits and risks were described and informed consent was obtained. DESCRIPTION OF PROCEDURE: The patient had undergone Suprep. He had been brought into the operating room and laid in the left lateral decubitus position. After adequate intravenous sedation, the rectum was examined with 2% lidocaine jelly. The prostate fossa was unremarkable. External hemorrhoids were encountered. The rectal tone was within normal limits. No lesions were palpated in the rectal vault. An Olympus colonoscope was advanced until the ileocecal valve and appendiceal orifice were clearly viewed. The prep was excellent. Sigmoid diverticulosis was encountered. Multiple colonic polyps were found and snare polypectomy or cold forceps biopsy. No evidence of focal colitis was found. Retroflexion of the scope demonstrated grade 2 internal hemorrhoids without active bleeding or inflammation. The colon was desufflated. The patient had tolerated the procedure well. Withdrawal time was over 6 minutes. FINDINGS: Aronchick preparation quality scale 1 (1-5) Internal hemorrhoids, grade 1 No external hemorrhoids No arteriovenous malformations. Sigmoid diverticulosis Removal of 7 polyps: - Snare polypectomy at hepatic flexure x 2, 5 to 6 mm tubulovillous adenoma polyp. - Snare polypectomy at mid transverse colon, 8 mm flat villous adenoma polyp. - Snare polypectomy at proximal transverse colon, 5 mm flat villous adenoma polyp. - Snare polypectomy at distal transverse colon, 6 mm flat villous adenoma polyp. - Cold forceps biopsy at 15 cm from the anal verge, 4 mm polyp. - Cold forceps biopsy at 12 cm from the anal verge, 5 mm polyp. No focal colitis. RECOMMENDATIONS: Given severity of tubular adenomas, recommend repeat colonoscopy 2 years, 2021 Plan - Discharge Summary Discharge Rx Participant: No New Discharge Prescriptions: Continue Aspirin [Adult Low Dose Aspirin EC] 81 mg PO DAILY Metoprolol Succinate [Toprol XL] 100 mg PO QAM Hydrochlorothiazide [Hydrodiuril] 12.5 mg PO DAILY Atorvastatin [Lipitor] 40 mg PO DAILY Losartan [Cozaar] 50 mg PO QAM Cholecalciferol [Vitamin D3 (25 Mcg = 1000 Iu)] 2,000 unit PO DAILY Discharge Medication List Aspirin [Adult Low Dose Aspirin EC] 81 mg PO DAILY 07/27/16 [History] Atorvastatin [Lipitor] 40 mg PO DAILY 07/27/16 [History] Hydrochlorothiazide [Hydrodiuril] 12.5 mg PO DAILY 07/27/16 [History] Losartan [Cozaar] 50 mg PO QAM 07/27/16 [History] Metoprolol Succinate [Toprol XL] 100 mg PO QAM 07/27/16 [History] Cholecalciferol [Vitamin D3 (25 Mcg = 1000 Iu)] 2,000 unit PO DAILY 04/27/19 [History] Follow up Appointment(s)/Referral(s): Jackeline Fleming MD [STAFF PHYSICIAN] - As Needed Patient Instructions/Handouts: Colorectal Polyps (DC), *Surgery [facility] - (Anesthesia) Endoscopy Discharge Instructions, Diverticulosis Diet (GEN), Diverticulosis (GEN) Activity/Diet/Wound Care/Special Instructions: Repeat colonoscopy in 2 years, 2021 Discharge Disposition: HOME SELF-CARE
[2019-04-29 10:40] VITALS: PULSE 72
[2019-04-29 10:50] VITALS: BP 120/72
--- NOTE | 2019-05-03 19:56 | CDI ---
Outpatient Documentation Clarification Form Date: 05/03/19 CDS/[employer] [facility] [facility] Manager Name: Christiane Mars Phone: If any questions, call Kesha Bearden Solvent Plant Treater at [phone] Patient Name: Scar Garcia Admit Date: 04/29/19 Discharge Date: 04/29/19 ATTENTION: The [facility] Coding Staff appreciate your assistance in clarifying documentation. Please respond to the clarification below the line at the bottom and electronically sign. The [facility] Coding staff will review the response and follow-up if needed. Please note: Queries are made part of the Legal Health Record. If you have any questions, please contact the Solvent Plant Treater. Dear Dr. Fleming, Please provide clarification as to the name of the location fo the two polyps removed at 15cm from the anal verge and 12cm from the anal verge. In order to to code to the greatest specificity please clarify the name of the area of the colon. Thank you for your kind consideration. rectum, see addendum MTDD
== END | disposition home or self-care (01) ==
LOC: ORWHC2ENDO 09:25
PROVIDERS: ATTEND Surgery Plastic and Reconstructive Surgery
DX: Z12.11 Encounter for screening for malignant neoplasm of colon (principal); D12.3 Benign neoplasm of transverse colon; D12.8 Benign neoplasm of rectum; K63.5 Polyp of colon; K62.1 Rectal polyp; K57.30 Diverticulosis of large intestine without perforation or abscess without bleeding; K64.1 Second degree hemorrhoids; Z86.010 Personal history of colon polyps; E78.5 Hyperlipidemia, unspecified; I10 Essential (primary) hypertension; F17.210 Nicotine dependence, cigarettes, uncomplicated; N42.83 Cyst of prostate; M06.9 Rheumatoid arthritis, unspecified; R01.1 Cardiac murmur, unspecified; K42.9 Umbilical hernia without obstruction or gangrene; E66.01 Morbid (severe) obesity due to excess calories; Z68.41 Body mass index [BMI] 40.0-44.9, adult; Z97.2 Presence of dental prosthetic device (complete) (partial); Z96.653 Presence of artificial knee joint, bilateral; Z80.9 Family history of malignant neoplasm, unspecified; Z79.82 Long term (current) use of aspirin; Z79.899 Other long term (current) drug therapy
CPT/HCPCS: 88305; 45380; 45385; J2001; J2704

== ENCOUNTER → 2020-01-25 | Outpatient (CLI) | payer MEDICARE, OTHER ==
--- NOTE | 2020-01-25 13:59 | CTL ---
EXAMINATION TYPE: CT Low Dose Lung DATE OF EXAM ORDERED: 01/25/2020 HISTORY: Long-term tobacco use. Lung cancer screening CT DLP: 87.[address] CTDI: 2.4 mGy Automated exposure control for dose reduction was used. SCREENING VISIT: Initial study COMPARISON: None. TECHNIQUE: Low dose computed tomography scan was performed through the chest at 1 mm thick sections a nd reconstructed images in the coronal plane at [address] DIAGNOSTIC QUALITY: Limited, but interpretable related to patient's large body habitus and low-dos e technique. FINDINGS: LUNG NODULES: Present, detailed below: There is 9 mm groundglass nodule or opacity axial image 217 medial aspect right lower lobe. LUNGS: COPD: Severity: Mild Fibrosis: Severity: None Lymph nodes: None Other findings: None BILATERAL PLEURAL SPACE: Effusion: None Calcification: None Thickening: None Pneumothorax: None HEART: Heart Size: Normal Coronary calcification: Moderate Pericardial effusion: None OTHER FINDINGS: Upper abdomen: None. Bony thorax: [id number] multilevel spurring. Supraclavicular region: None Other: None IMPRESSION: Mild emphysematous change with 9 mm medial right lower lobe groundglass nodule. FOLLOW UP CT CHEST RECOMMENDATION: Annual low-dose lung screening CT CT LUNG RAD: Lung-Rad 2 Benign Appearance or Behavior
== END | disposition home or self-care (01) ==
LOC: RADCTMAIN 13:10
PROVIDERS: ATTEND Family Medicine
DX: Z12.2 Encounter for screening for malignant neoplasm of respiratory organs (principal); F17.210 Nicotine dependence, cigarettes, uncomplicated; J43.9 Emphysema, unspecified

== ENCOUNTER 2021-07-20 07:53 | Day surgery (SDC) | payer MEDICARE, OTHER ==
[2021-07-19 08:28] VITALS: BMI 39.5
[~2021-07-20 07:53] MED LIST changes: +LIDOCAINE 1% (10MG/ML) FOR IV START INTRADERMA PRN; -LIDOCAINE 1% 20 ML VIAL (10MG/ML) FOR IV START INTRADERMA PRN; -LIDOCAINE 1% INJ 10MG/ML (20 ML MDV) ONE; -PROPOFOL 10 MG/ML 20 ML VIAL IV ONE
--- NOTE | 2021-07-20 08:07 | P.GSHP ---
History of Present Illness H&P Date: 07/20/21 CHIEF COMPLAINT: Colon screen HISTORY OF PRESENT ILLNESS: The patient is a 75-year-old male who presents for colon screen. Lower endoscopy was offered for further evaluation and management. PAST MEDICAL HISTORY: Please see list. PAST SURGICAL HISTORY: Please see list. MEDICATIONS: Please see list. ALLERGIES: Please see list. SOCIAL HISTORY: No illicit drug use FAMILY HISTORY: No reports of Crohn disease or ulcerative colitis. REVIEW OF ORGAN SYSTEMS: CONSTITUTIONAL: No reports of fevers or chills. PHYSICAL EXAM: VITAL SIGNS: Stable GENERAL: Well-developed pleasant in no acute distress. HEENT: No scleral icterus. Extraocular movements grossly intact. Moist buccal mucosa. NECK: Supple without lymphadenopathy. CHEST: Unlabored respirations. Equal bilateral excursions. CARDIOVASCULAR: Regular rate and rhythm. Distal 2+ pulses. ABDOMEN: Soft, nontender, nondistended. MUSCULOSKELETAL: No clubbing, cyanosis, or edema. ASSESSMENT: 1. Colon screen. PLAN: 1. 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, rt foot drop, juan jose knee replacement, wound closure on lower rt thigh from injury, COLONOSCOPY, Past Anesthesia/Blood Transfusion Reactions: No Reported Reaction Smoking Status: Current every day smoker - Past Family History Mother Family Medical History: Cancer Medications and Allergies Home Medications Medication Instructions Recorded Confirmed Type Aspirin [Adult Low Dose Aspirin EC] 81 mg PO DAILY 07/27/16 07/19/21 History Atorvastatin [Lipitor] 40 mg PO DAILY 07/27/16 07/19/21 History Losartan [Cozaar] 50 mg PO QAM 07/27/16 07/19/21 History Metoprolol Succinate [Toprol XL] 100 mg PO QAM 07/27/16 07/19/21 History hydroCHLOROthiazide [Hydrodiuril] 12.5 mg PO DAILY 07/27/16 07/19/21 History Cholecalciferol [Vitamin D3 (25 2,000 unit PO DAILY 04/27/19 07/19/21 History Mcg = 1000 Iu)] Allergies Allergy/AdvReac Type Severity Reaction Status Date / Time No Known Allergies Allergy Verified 07/19/21 08:16
[2021-07-20 08:28] VITALS: TEMP 98.1
[2021-07-20] MEDS ORDERED: PROPOFOL 10 MG/ML 20 ML VIAL IV ONE (08:36)
[2021-07-20 08:57] VITALS: PULSE 68
--- NOTE | 2021-07-20 09:05 | P.PCN ---
Date of Procedure: 07/20/21 Description of Procedure: PREOPERATIVE DIAGNOSIS: Personal history of colon polyps Colonoscopy screening POSTOPERATIVE DIAGNOSIS: Personal history of colon polyps Tubular adenoma ascending colon Tubular adenoma sigmoid colon Tubular adenoma hepatic flexure Tubular adenoma transverse colon Sigmoid diverticulosis OPERATION: Colonoscopy to the ileocecal valve and appendiceal orifice, cecum Colonoscopy with hot snare polypectomy Colonoscopy with cold forceps biopsy SURGEON: Jackeline Fleming MD. ANESTHESIA: MAC. INDICATIONS: The patient is an 75-year-old male who presents personal history of colon polyps. Last colonoscopy 5 years. Benefits and risks were described and informed consent was obtained. DESCRIPTION OF PROCEDURE: The patient had undergone Sutab prep. The patient had been brought into the operating room and laid in the left lateral decubitus position. After adequate intravenous sedation, the rectum was examined with 2% lidocaine jelly. The prostate fossa was unremarkable. No external hemorrhoids were encountered. The rectal tone was within normal limits. No lesions were palpated in the rectal vault. An Olympus colonoscope was advanced until the cecum, ileocecal valve and appendiceal orifice were clearly viewed. The prep was good. Sigmoid diverticulosis was encountered. Colonic polyps were found and removed. No evidence of focal colitis was found. Retroflexion of the scope demonstrated grade 1 internal hemorrhoids without active bleeding or inflammation. The colon was desufflated. The patient had tolerated the procedure well. Withdrawal time was over 6 minutes. FINDINGS: Aronchick preparation quality scale 2 (1-5) Internal hemorrhoids, grade 1 No external hemorrhoids No arteriovenous malformations. Sigmoid diverticulosis Removal of 4 polyps: - Snare polypectomy hepatic flexure, 5 mm tubulovillous adenoma polyp. - Cold forceps biopsy at ascending colon, 4 mm polyp. - Cold forceps biopsy at mid transverse colon, 5 mm polyp. - Cold forceps biopsy at sigmoid colon, 4 mm polyp. No focal colitis. RECOMMENDATIONS: Repeat colonoscopy in 3 years, 2034 Plan - Discharge Summary Discharge Rx Participant: No New Discharge Prescriptions: Continue Aspirin [Adult Low Dose Aspirin EC] 81 mg PO DAILY Metoprolol Succinate [Toprol XL] 100 mg PO QAM hydroCHLOROthiazide [Hydrodiuril] 12.5 mg PO DAILY Atorvastatin [Lipitor] 40 mg PO DAILY Losartan [Cozaar] 50 mg PO QAM Cholecalciferol [Vitamin D3 (25 Mcg = 1000 Iu)] 2,000 unit PO DAILY Discharge Medication List Aspirin [Adult Low Dose Aspirin EC] 81 mg PO DAILY 07/27/16 [History] Atorvastatin [Lipitor] 40 mg PO DAILY 07/27/16 [History] Losartan [Cozaar] 50 mg PO QAM 07/27/16 [History] Metoprolol Succinate [Toprol XL] 100 mg PO QAM 07/27/16 [History] hydroCHLOROthiazide [Hydrodiuril] 12.5 mg PO DAILY 07/27/16 [History] Cholecalciferol [Vitamin D3 (25 Mcg = 1000 Iu)] 2,000 unit PO DAILY 04/27/19 [History] Discharge Disposition: HOME SELF-CARE
[2021-07-20 09:19] VITALS: BP 162/74; RESP 18
== END 2021-07-20 10:01 | disposition home or self-care (01) ==
LOC: ORWHC2ENDO 07:53
PROVIDERS: ATTEND Surgery Plastic and Reconstructive Surgery
DX: Z12.11 Encounter for screening for malignant neoplasm of colon (principal); K57.30 Diverticulosis of large intestine without perforation or abscess without bleeding; D12.2 Benign neoplasm of ascending colon; D12.3 Benign neoplasm of transverse colon; D12.5 Benign neoplasm of sigmoid colon; E78.5 Hyperlipidemia, unspecified; F17.200 Nicotine dependence, unspecified, uncomplicated; I10 Essential (primary) hypertension; M06.9 Rheumatoid arthritis, unspecified; Z79.82 Long term (current) use of aspirin; Z79.899 Other long term (current) drug therapy; Z96.653 Presence of artificial knee joint, bilateral; Z86.010 Personal history of colon polyps
CPT/HCPCS: 45380; 45385; 88305; J2704

== ENCOUNTER 2021-11-30 14:09 | Observation (INO) | payer MEDICARE, OTHER ==
[2021-11-30] MEDS ORDERED: ASPIRIN 81 MG PO STA (15:59)
[2021-11-30] MEDS ORDERED: NITROGLYCERIN OINT 1 INCH/GM PACKET TOPICAL STA (15:59)
[2021-11-30] MEDS ORDERED: hydrALAZINE HCL 20 MG/ML 1 ML VIAL IVP STA ×2 (16:00→18:13)
--- NOTE | 2021-11-30 16:05 | ED ---
General Adult HPI - General Chief complaint: Chest Pain Stated complaint: chest tightness Time Seen by Provider: 11/30/21 15:50 Source: patient, RN notes reviewed, old records reviewed Mode of arrival: ambulatory Limitations: no limitations - History of Present Illness Initial comments: This is a 76-year-old male who presents emergency Department stating that he said elevated blood pressure recently his doctor recently increased his medication but does not seem to be helping. Patient also complains of some chest tightness for the last 4 days. Patient denies any actual chest pain or heaviness. He says as a tightness in his chest. Patient denies any difficulty breathing. Patient denies any palpitation. Patient denies any recent fever chills or cough per patient denies any radiation of the tightness. Patient denies any nausea vomiting. Patient denies any abdominal pain. Patient does state he has headaches associated with the elevated blood pressure but no numbness or weakness. Patient denies lightheadedness dizziness. Patient is a cigarette smoker. And he does have high cholesterol - Related Data Home Medications Medication Instructions Recorded Confirmed Aspirin [Adult Low Dose Aspirin EC] 81 mg PO DAILY 07/27/16 07/19/21 Atorvastatin [Lipitor] 40 mg PO DAILY 07/27/16 07/19/21 Losartan [Cozaar] 50 mg PO QAM 07/27/16 07/19/21 Metoprolol Succinate [Toprol XL] 100 mg PO QAM 07/27/16 07/19/21 hydroCHLOROthiazide [Hydrodiuril] 12.5 mg PO DAILY 07/27/16 07/19/21 Cholecalciferol [Vitamin D3 (25 2,000 unit PO DAILY 04/27/19 07/19/21 Mcg = 1000 Iu)] Allergies Allergy/AdvReac Type Severity Reaction Status Date / Time No Known Allergies Allergy Verified 07/20/21 08:31 Review of Systems ROS Statement: Those systems with pertinent positive or pertinent negative responses have been documented in the HPI. ROS Other: All systems not noted in ROS Statement are negative. 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 Patient is nontoxic and well- hydrated and is in mild distress. ENT: Neck is soft and supple. No significant lymphadenopathy is noted. Oropharynx is clear. Moist mucous membranes. Neck has full range of motion without elicit ing any pain. EYES: The sclera were anicteric and conjunctiva were pink and moist. Extraocular mov ements were intact and pupils were equal round and reactive to light. Eyelids were unremarkable. PULMONARY: Unlabored respirations. Good breath sounds bilaterally. No audible rales rhonchi or wheezing was noted. CARDIOVASCULAR: There is a regular rate and rhythm without any murmurs gallops or rubs. ABDOMEN: Soft and nontender with normal bowel sounds. SKIN: Skin is clear with no lesions or rashes and otherwise unremarkable. NEUROLOGIC: Patient is alert and oriented x3. Cranial nerves II through XII are grossly intact. Motor and sensory are also intact. Normal speech, volume and content. Symmetrical smile. MUSCULOSKELETAL: Normal extremities with adequate strength and full range of motion. LYMPHATICS: No significant lymphadenopathy is noted PSYCHIATRIC: Normal psychiatric evaluation. Limitations: no limitations Course Vital Signs 11/30/21 11/30/21 11/30/21 15:17 15:24 17:10 Temperature 97.8 F 97.8 F Pulse Rate 61 60 59 L Respiratory 18 18 20 Rate Blood Pressure 183/81 183/81 188/86 O2 Sat by Pulse 96 96 96 Oximetry Medical Decision Making - Medical Decision Making EKG shows sinus bradycardia with occasional PACs in a trigeminal pattern. OR interval is 208 QRSs 89 QT intervals 425 QTC is 421. Patient's EKG shows no ST segment elevation or depression. Chest x-ray shows no acute abnormality. I went and talked to the patient after he got nitroglycerin his chest pain had subsided. Patient was considering that it might be anxiety however I told about his risk factors and the fact that his chest pain went away now that he should probably be observed and seen by cardiology he eventually agreed and I admitted the patient. I spoke with sounds physician's agreed to admit the patient admitted the patient wrote admitting orders. - Lab Data Result diagrams: 11/30/21 15:46 11/30/21 15:46 Lab Results 11/30/21 11/30/21 11/30/21 Range/Units 15:46 15:46 15:46 WBC 8.3 (3.8-10.6) k/uL RBC 5.49 (4.30-5.90) m/uL Hgb 17.6 H (13.0-17.5) gm/dL Hct 50.5 (39.0-53.0) % MCV 92.1 (80.0-100.0) fL MCH 32.1 (25.0-35.0) pg MCHC 34.8 (31.0-37.0) g/dL RDW 13.8 (11.5-15.5) % Plt Count 168 (150-450) k/uL MPV 8.9 Neutrophils % 59 % Lymphocytes % 28 % Monocytes % 7 % Eosinophils % 2 % Basophils % 1 % Neutrophils # 4.9 (1.3-7.7) k/uL Lymphocytes # 2.3 (1.0-4.8) k/uL Monocytes # 0.6 (0-1.0) k/uL Eosinophils # 0.2 (0-0.7) k/uL Basophils # 0.1 (0-0.2) k/uL PT 10.0 (9.0-12.0) sec INR 0.9 (<1.2) APTT 24.4 (22.0-30.0) sec Sodium 140 (137-145) mmol/L Potassium 4.3 (3.5-5.1) mmol/L Chloride 100 (98-107) mmol/L Carbon Dioxide 27 (22-30) mmol/L Anion Gap 13 mmol/L BUN 21 H (9-20) mg/dL Creatinine 0.99 (0.66-1.25) mg/dL Est GFR (CKD-EPI)AfAm 86 (>60 ml/min/1.73 sqM) Est GFR (CKD-EPI)NonAf 75 (>60 ml/min/1.73 sqM) Glucose 102 H (74-99) mg/dL Calcium 10.0 (8.4-10.2) mg/dL Magnesium 1.9 (1.6-2.3) mg/dL Total Bilirubin 0.7 (0.2-1.3) mg/dL AST 35 (17-59) U/L ALT 35 (4-49) U/L Alkaline Phosphatase 89 (38-126) U/L Troponin I (0.000-0.034) ng/mL Total Protein 7.8 (6.3-8.2) g/dL Albumin 4.6 (3.5-5.0) g/dL 11/30/21 Range/Units 15:46 WBC (3.8-10.6) k/uL RBC (4.30-5.90) m/uL Hgb (13.0-17.5) gm/dL Hct (39.0-53.0) % MCV (80.0-100.0) fL MCH (25.0-35.0) pg MCHC (31.0-37.0) g/dL RDW (11.5-15.5) % Plt Count (150-450) k/uL MPV Neutrophils % % Lymphocytes % % Monocytes % % Eosinophils % % Basophils % % Neutrophils # (1.3-7.7) k/uL Lymphocytes # (1.0-4.8) k/uL Monocytes # (0-1.0) k/uL Eosinophils # (0-0.7) k/uL Basophils # (0-0.2) k/uL PT (9.0-12.0) sec INR (<1.2) APTT (22.0-30.0) sec Sodium (137-145) mmol/L Potassium (3.5-5.1) mmol/L Chloride (98-107) mmol/L Carbon Dioxide (22-30) mmol/L Anion Gap mmol/L BUN (9-20) mg/dL Creatinine (0.66-1.25) mg/dL Est GFR (CKD-EPI)AfAm (>60 ml/min/1.73 sqM) Est GFR (CKD-EPI)NonAf (>60 ml/min/1.73 sqM) Glucose (74-99) mg/dL Calcium (8.4-10.2) mg/dL Magnesium (1.6-2.3) mg/dL Total Bilirubin (0.2-1.3) mg/dL AST (17-59) U/L ALT (4-49) U/L Alkaline Phosphatase (38-126) U/L Troponin I <0.012 (0.000-0.034) ng/mL Total Protein (6.3-8.2) g/dL Albumin (3.5-5.0) g/dL Disposition Clinical Impression: Chest pain, Hypertensive urgency Disposition: ADMITTED IP TO THIS HOSP Referrals: Rodney Smith MD [Primary Care Provider] - 1-2 days Time of Disposition: 18:09
[2021-11-30 16:15] LABS: Basophils # (A) 0.1 k/uL (0-0.2); Basophils % (A) 1 %; Eosinophils # (A) 0.2 k/uL (0-0.7); Eosinophils % (A) 2 %; HCT 50.5 % (39.0-53.0); HGB 17.6 gm/dL (13.0-17.5); Lymphocytes # (A) 2.3 k/uL (1.0-4.8); Lymphocytes % (A) 28 %; MCH 32.1 pg (25.0-35.0); MCHC 34.8 g/dL (31.0-37.0); MCV 92.1 fL (80.0-100.0); Mean Platelet Volume 8.9; Monocytes # (A) 0.6 k/uL (0-1.0); Monocytes % (A) 7 %; Neutrophils # (A) 4.9 k/uL (1.3-7.7); Neutrophils % (A) 59 %; Platelet Count 168 k/uL (150-450); RBC 5.49 m/uL (4.30-5.90); RDW 13.8 % (11.5-15.5); WBC 8.3 k/uL (3.8-10.6)
[2021-11-30 16:28] LABS: INR 0.9 (<1.2); Partial Thromboplastin Time 24.4 sec (22.0-30.0)
[2021-11-30 16:29] LABS: Albumin 4.6 g/dL (3.5-5.0); Magnesium 1.9 mg/dL (1.6-2.3); Potassium 4.3 mmol/L (3.5-5.1); Total Bilirubin 0.7 mg/dL (0.2-1.3); Total Protein 7.8 g/dL (6.3-8.2)
--- NOTE | 2021-11-30 17:56 | XR ---
EXAMINATION TYPE: XR chest 2V DATE OF EXAM: 11/30/2021 COMPARISON: 07/11/2016 HISTORY: Chest pain TECHNIQUE: Frontal and lateral views of the chest are obtained. FINDINGS: There is diffuse mild hazy opacity. No significant infiltrate pleural effusion, or pneumot horax seen. The cardiac silhouette size is within normal limits. The osseous structures are intact . IMPRESSION: Mild interstitial edema versus atelectasis.
[2021-11-30] MEDS ORDERED: NITROGLYCERIN SL TABS 0.4 MG TAB SUBLINGUAL PRN (18:16)
[2021-11-30] MEDS ORDERED: LOSARTAN 50 MG TAB PO STA (18:20)
[2021-11-30] MEDS ORDERED: amLODIPine 10 MG TAB PO STA (23:08)
--- NOTE | 2021-11-30 23:09 | P.HPIM ---
History of Present Illness H&P Date: 11/30/21 The patient is a 76-year-old male with a PMH of hypertension and hyperlipidemia who presents to the emergency room with complaints of elevated blood pressure and chest discomfort. The patient reports that he was started on losartan by his PCP on November 24. He reports that since then, each time he takes his losartan in the morning, he develops substernal pressure like discomfort 20-30 minutes after, which lasts for roughly 6-8 hours and then resolves spontaneously. He reports that the symptoms are accompanied with occasional headaches. Denied experiencing shortness of breath, nausea, vomiting, diaphoresis, or dizziness. Patient also denied cough, fever, chills, abdominal pain, diarrhea. He also had a log of his blood pressures that he took 3 times daily which were all values ranging between 140/90-190/110. In the emergency room, the patient's blood pressure upon arrival was 183/81. He reports no chest discomfort at the time of interview. EKG reveals sinus bradycardia with PVCs at 58 bpm with T-wave inversion in precordial leads V5 and V6 with biphasic T waves in lead V4. Chest x-ray revealed mild interstitial edema. Laboratory evaluation was remarkable for troponin less than 0.012. Review of systems: Pertinent positives and negatives as discussed in HPI, a complete review of systems was performed and all other systems are negative. Physical examination: General: non toxic, no distress, appears at stated age, morbidly obese Derm: no unusual rashes/lesions, warm Head: atraumatic, normocephalic, symmetric Eyes: EOMI, no lid lag, anicteric sclera, pupils equal round reactive to light ENT: Nose and ears atraumatic Neck: No cervical lymphadenopathy, trachea midline, supple Mouth: no lip lesion, mucus membranes moist Cardiovascular: S1S2 reg, no murmur, positive dorsalis pedis pulse bilateral, no edema Lungs: CTA bilateral, no rhonchi, no rales, no accessory muscle use Abdominal: soft, nontender to palpation, no guarding Ext: muscle strength 5 out of 5 in all 4 extremities grossly, no gross muscle atrophy, no contractures, Neuro: CN II-XI grossly intact, no gross focal neuro deficits Psych: Alert, oriented, appropriate affect Assessment/plan Chest pain, rule out ACS -Cardiology consult -Trend troponin -Cardiac monitoring -Continue with aspirin, statin Uncontrolled hypertension -Increase patient's home dose of hydrochlorothiazide to 25 -Start patient on amlodipine DVT prophylaxis -Heparin subcu The patient is admitted with an anticipated less than 2 midnight stay for evaluation of chest pain CODE STATUS: Full Code Discussed with: Patient Anticipated discharge date: in am Anticipated discharge place: Home 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, rt foot drop, juan jose knee replacement, wound closure on lower rt thigh from injury, COLONOSCOPY Past Anesthesia/Blood Transfusion Reactions: No Reported Reaction Past Psychological History: Anxiety Smoking Status: Current every day smoker Past Alcohol Use History: Occasional Additional Past Alcohol Use History / Comment(s): 3/4 PPD Past Drug Use History: None Reported - Past Family History Mother Family Medical History: Cancer Medications and Allergies Home Medications Medication Instructions Recorded Confirmed Type Atorvastatin [Lipitor] 40 mg PO DAILY 07/27/16 11/30/21 History Metoprolol Succinate [Toprol XL] 100 mg PO DAILY 07/27/16 11/30/21 History hydroCHLOROthiazide [Hydrodiuril] 12.5 mg PO DAILY 07/27/16 11/30/21 History Acetaminophen-Codeine 300-30mg 1 tab PO Q6H PRN 11/30/21 11/30/21 History [Tylenol w/codeine #3] Cholecalciferol [Vitamin D3 (25 50 mcg PO DAILY 11/30/21 11/30/21 History Mcg = 1000 Iu)] Losartan Potassium [Cozaar] 100 mg PO DAILY 11/30/21 11/30/21 History Allergies Allergy/AdvReac Type Severity Reaction Status Date / Time No Known Allergies Allergy Verified 11/30/21 20:12 Physical Exam Vitals: Vital Signs Temp Pulse Resp BP Pulse Ox 11/30/21 19:30 62 18 150/79 96 11/30/21 17:10 59 L 20 188/86 96 11/30/21 15:24 97.8 F 60 18 183/81 96 11/30/21 15:17 97.8 F 61 18 183/81 96 Intake and Output 11/30/21 11/30/21 12/01/21 14:59 22:59 06:59 Other: Weight 120.202 kg Results CBC & Chem 7: 11/30/21 15:46 11/30/21 15:46 Labs: Abnormal Lab Results - Last 24 Hours (Table) 11/30/21 11/30/21 Range/Units 15:46 15:46 Hgb 17.6 H (13.0-17.5) gm/dL BUN 21 H (9-20) mg/dL Glucose 102 H (74-99) mg/dL Thrombosis Risk Factor Assmnt - Choose All That Apply Each Factor Represents 1 point: Obesity (BMI >25) Each Risk Factor Represents 2 Points: Age 61-74 years Thrombosis Risk Factor Assessment Total Risk Factor Score: 3 Thrombosis Risk Factor Assessment Level: Moderate Risk
[2021-12-01] MEDS: HEPARIN SODIUM,PORCINE/PF 5,000 UNIT/0.5 ML SYRINGE SQ SCH ×2 (00:15→09:33)
[2021-12-01] MEDS: NITROGLYCERIN OINT 1 INCH/GM PACKET TOPICAL SCH ×2 (00:16→06:06)
[2021-12-01] MEDS ORDERED: ASPIRIN 325 MG TAB PO SCH (09:00)
[2021-12-01] MEDS ORDERED: amLODIPine 10 MG TAB PO SCH (09:00)
[2021-12-01] MEDS ORDERED: METOPROLOL SUCCINATE (ER) 100 MG TAB.ER.24H PO SCH (09:00)
[2021-12-01] MEDS ORDERED: VALSARTAN 160 MG TAB PO SCH (09:00)
[2021-12-01] MEDS ORDERED: ATORVASTATIN 40 MG TAB PO SCH (09:00)
[2021-12-01] MEDS ORDERED: hydroCHLOROthiazide 12.5 MG CAP PO SCH (09:00)
[2021-12-01 09:09] VITALS: PULSE 60; RESP 18; TEMP 98.2
[2021-12-01 09:30] LABS: Chol/HDL Ratio 4.27 Ratio; LDL Cholesterol,Calculated 73.4 mg/dL (0.0-131.0)
--- NOTE | 2021-12-01 09:34 | P.CRDCN ---
History of Present Illness Consult date: 12/01/21 History of present illness: HISTORY OF PRESENT ILLNESS: This is a 76-year-old male with a past medical history significant for with hypertension, hyperlipidemia, and nicotine dependence. Patient follows in the office with Dr. Sherman. We have been asked to see the patient in consultation for chest pain and hypertension. Patient examined at the bedside. Patient states over the past few days his blood pressure has been elevated with a systolic in the [id number]. Patient reports feeling some mild chest discomfort while his blood pressure was elevated and also felt some pressure in his head. He denies any palpitations. Denies dizziness or lightheadedness. The patient currently denies chest pain or pressure. He denies shortness of breath. * EKG reveals sinus mechanism with PVCs. T-wave inversions in lateral leads * Chest xray mild interstitial edema versus atelectasis * Laboratory data: WBC 8.3. Hemoglobin 17.6. Platelet count 168. Sodium 140. Potassium 4.3. BUN 21. Creatinine 0.99. Magnesium 1.9. Troponin negative 3. * Current home cardiac medications include losartan 100 mg daily, hydrochlorothiazide 12.5 mg daily, metoprolol succinate 100 mg daily, and Lipitor 40 mg daily * Most recent echocardiogram obtained in June 2021 revealed ejection fraction 55%, mild aortic stenosis, mild mitral regurgitation, trace tricuspid regurgitation * Patient underwent Lexiscan stress test in June 2021 which was negative for ischemia REVIEW OF SYSTEMS: At the time of my exam: CONSTITUTIONAL: Denies fever or chills. HEENT: Denies blurred vision, vision changes, or eye pain. Denies hemoptysis CARDIOVASCULAR: Denies chest pain. Denies orthopnea. Denies PND. Denies palpitations RESPIRATORY: Denies shortness of breath. GASTROINTESTINAL: Denies abdominal pain. Denies nausea or vomiting. HEMATOLOGIC: Denies bleeding disorders. GENITOURINARY: Denies any blood in urine. SKIN: Denies pruitis. Denies rash. PHYSICAL EXAM: VITAL SIGNS: Reviewed. GENERAL: Well-developed in no acute distress. HEENT: Head is normocephalic. Pupils are equal, round. Sclerae anicteric. Mucous membranes of the mouth are moist. Neck supple. No JVD or thyromegaly LUNGS: Respirations even and unlabored. Lungs essentially clear to auscultation bilaterally. HEART: Regular rate and rhythm. S1 and S2 heard. Systolic murmur noted ABDOMEN: Soft. Nondistended. Nontender. EXTREMITIES: Normal range of motion. No clubbing or cyanosis. Peripheral pulses intact. No lower extremity edema NEUROLOGIC: Awake and alert. Oriented x 3. ASSESSMENT: Chest pain, troponins negative 3 Hypertension, uncontrolled Hyperlipidemia Nicotine dependence PLAN: -Acute coronary event has been ruled out No need to repeat echocardiogram as this was performed in June 2021 Discontinue Norvasc Discontinue losartan Begin valsartan 320 mg daily Patient may be discharged home this afternoon from a cardiac standpoint Nurse practitioner note has been reviewed by physician. Signing provider agrees with the documented findings, assessment, and plan of care. 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, rt foot drop, juan jose knee replacement, wound closure on lower rt thigh from injury, COLONOSCOPY Past Anesthesia/Blood Transfusion Reactions: No Reported Reaction Past Psychological History: Anxiety Smoking Status: Current every day smoker Past Alcohol Use History: Occasional Additional Past Alcohol Use History / Comment(s): 3/4 PPD Past Drug Use History: None Reported - Past Family History Mother Family Medical History: Cancer Medications and Allergies Home Medications Medication Instructions Recorded Confirmed Type Atorvastatin [Lipitor] 40 mg PO DAILY 07/27/16 11/30/21 History Metoprolol Succinate [Toprol XL] 100 mg PO DAILY 07/27/16 11/30/21 History hydroCHLOROthiazide [Hydrodiuril] 12.5 mg PO DAILY 07/27/16 11/30/21 History Acetaminophen-Codeine 300-30mg 1 tab PO Q6H PRN 11/30/21 11/30/21 History [Tylenol w/codeine #3] Cholecalciferol [Vitamin D3 (25 50 mcg PO DAILY 11/30/21 11/30/21 History Mcg = 1000 Iu)] Losartan Potassium [Cozaar] 100 mg PO DAILY 11/30/21 11/30/21 History Allergies Allergy/AdvReac Type Severity Reaction Status Date / Time No Known Allergies Allergy Verified 11/30/21 20:12 Physical Exam Vitals: Vital Signs Temp Pulse Pulse Resp BP BP Pulse Ox 12/01/21 07:00 98.2 F 60 18 138/73 97 12/01/21 03:44 97.6 F 55 L 17 154/71 96 12/01/21 00:15 75 143/79 11/30/21 22:00 98.2 F 70 19 179/44 95 11/30/21 19:30 62 18 150/79 96 11/30/21 17:10 59 L 20 188/86 96 11/30/21 15:24 97.8 F 60 18 183/81 96 11/30/21 15:17 97.8 F 61 18 183/81 96 Intake and Output 11/30/21 12/01/21 12/01/21 22:59 06:59 14:59 Intake Total 0 Balance 0 Intake: Oral 0 Other: Voiding Method Toilet # Voids 1 2 Weight 120.202 kg Results 11/30/21 15:46 11/30/21 15:46 Cardiac Enzymes 11/30/21 11/30/21 11/30/21 Range/Units 15:46 15:46 18:41 AST 35 (17-59) U/L Troponin I <0.012 <0.012 (0.000-0.034) ng/mL 11/30/21 Range/Units 21:22 AST (17-59) U/L Troponin I <0.012 (0.000-0.034) ng/mL Coagulation 11/30/21 Range/Units 15:46 PT 10.0 (9.0-12.0) sec APTT 24.4 (22.0-30.0) sec CBC 11/30/21 Range/Units 15:46 WBC 8.3 (3.8-10.6) k/uL RBC 5.49 (4.30-5.90) m/uL Hgb 17.6 H (13.0-17.5) gm/dL Hct 50.5 (39.0-53.0) % Plt Count 168 (150-450) k/uL Comprehensive Metabolic Panel 11/30/21 Range/Units 15:46 Sodium 140 (137-145) mmol/L Potassium 4.3 (3.5-5.1) mmol/L Chloride 100 (98-107) mmol/L Carbon Dioxide 27 (22-30) mmol/L BUN 21 H (9-20) mg/dL Creatinine 0.99 (0.66-1.25) mg/dL Glucose 102 H (74-99) mg/dL Calcium 10.0 (8.4-10.2) mg/dL AST 35 (17-59) U/L ALT 35 (4-49) U/L Alkaline Phosphatase 89 (38-126) U/L Total Protein 7.8 (6.3-8.2) g/dL Albumin 4.6 (3.5-5.0) g/dL Current Medications Generic Name Dose Route Start Last Admin Trade Name Freq PRN Reason Stop Dose Admin Atorvastatin Calcium 40 mg 12/01/21 09:00 Atorvastatin 40 Mg Tab PO DAILY [facility] Heparin Sodium (Porcine) 5,000 unit 12/01/21 00:00 12/01/21 00:15 Heparin Sodium,Porcine/Pf 5,000 Unit/0.5 Ml Syringe SQ 5,000 unit Q8HR PRIYANKA Administration Hydrochlorothiazide 50 mg 12/01/21 09:00 Hydrochlorothiazide 50 Mg Tab PO DAILY PRIYANKA Metoprolol Succinate 100 mg 12/01/21 09:00 Metoprolol Succinate (Er) 100 Mg Tab.Er.24h PO QAM PRIYANKA Nitroglycerin 0.4 mg 11/30/21 18:16 Nitroglycerin Sl Tabs 0.4 Mg Tab SUBLINGUAL Q5M PRN Chest Pain Valsartan 320 mg 12/01/21 09:00 Valsartan 160 Mg Tab PO DAILY [facility] Intake and Output 11/30/21 12/01/21 12/01/21 22:59 06:59 14:59 Intake Total 0 Balance 0 Intake: Oral 0 Other: Voiding Method Toilet # Voids 1 2 Weight 120.202 kg 11/30/21 15:46 11/30/21 15:46
[2021-12-01 11:07] VITALS: BP 148/70
--- NOTE | 2021-12-01 14:22 | P.DS ---
Providers Date of admission: 11/30/21 18:31 Expected date of discharge: 12/01/21 Attending physician: Vivian Cleveland DO Consults: 11/30/21 18:18 Consult Physician Urgent Consulting Provider: [facility] Consult Reason/Comments: Chest pain, hypertension Do you want consulting provider notified?: Yes Primary care physician: Rodney Smith Hospital Course: Discharge Diagnosis: Hypertensive urgency Chest pain, ACS ruled out HLD Nicotine dependency Hospital Course: The patient is a 76-year-old male with hypertension and hyperlipidemia who presented to the ED with complaints of elevated blood pressure and chest discomfort. Patient was restarted on higher dose losartan by his PCP on November 24. He then developed chest pain each time he takes his losartan in the morning. In the ED he was found to be hypertensive with a BP of 183/81. EKG reveals sinus bradycardia with PVCs at 58 bpm with T-wave inversion in precordial leads V5 and V6 with biphasic T waves in lead V4. Chest x-ray revealed mild interstitial edema. Laboratory evaluation was remarkable for troponin less than 0.012. He was admitted for further monitoring. Troponin being negative. She was seen by cardiology who recommended stopping losartan, starting Diovan, and continue with hydrochlorothiazide. His blood pressure remained stable. He was cleared by cardiology for discharge. Follow-up: Dr. Smith in 1-2 days, Dr. Sherman next week, stopped losartan, added Diovan, increased hydrochlorothiazide. Recommended repeat basic metabolic profile in 3-4 days to assess renal function and potassium. Patient seen and examined at bedside. He denies any chest pain, shortness breath, nausea and vomiting. Feeling well and wants to go home. Vital signs reviewed and stable. General: nontoxic, no distress, appears at stated age Derm: warm, dry Head: atraumatic, normocephalic, symmetric Eyes: EOMI, no lid lag, anicteric sclera Mouth: no lip lesion, mucus membranes moist Cardiovascular: S1S2 reg, no murmur, positive posterior tibial pulse bilateral, Lungs: CTA bilateral, no rhonchi, no rales , no accessory muscle use Abdominal: soft, nontender to palpation, no guarding, no appreciable organomegaly Ext: no gross muscle atrophy, no edema, no contractures Neuro: CN II-XI grossly intact, no focal neuro deficits Psych: Alert, oriented, appropriate affect A total of 32 minutes of time were spent preparing this complex discharge summary. Patient was discharged on 12/01/21. Plan - Discharge Summary New Discharge Prescriptions: New hydroCHLOROthiazide [Hydrodiuril] 50 mg PO DAILY #30 tab Valsartan [Diovan] 320 mg PO DAILY #60 tab Continue Metoprolol Succinate [Toprol XL] 100 mg PO DAILY Atorvastatin [Lipitor] 40 mg PO DAILY Acetaminophen-Codeine 300-30mg [Tylenol w/codeine #3] 1 tab PO Q6H PRN PRN Reason: Pain Cholecalciferol [Vitamin D3 (25 Mcg = 1000 Iu)] 50 mcg PO DAILY Discontinued hydroCHLOROthiazide [Hydrodiuril] 12.5 mg PO DAILY Losartan Potassium [Cozaar] 100 mg PO DAILY Discharge Medication List Atorvastatin [Lipitor] 40 mg PO DAILY 07/27/16 [History] Metoprolol Succinate [Toprol XL] 100 mg PO DAILY 07/27/16 [History] Acetaminophen-Codeine 300-30mg [Tylenol w/codeine #3] 1 tab PO Q6H PRN 11/30/21 [History] Cholecalciferol [Vitamin D3 (25 Mcg = 1000 Iu)] 50 mcg PO DAILY 11/30/21 [History] Valsartan [Diovan] 320 mg PO DAILY #60 tab 12/01/21 [Rx] hydroCHLOROthiazide [Hydrodiuril] 50 mg PO DAILY #30 tab 12/01/21 [Rx] Follow up Appointment(s)/Referral(s): Rodney Smith MD [Primary Care Provider] - 1-2 days Hood Sherman MD [STAFF PHYSICIAN] - 12/07/21 3:30 pm Ambulatory/Diagnostic Orders: Basic Metabolic Panel [LAB.AMB] Time Frame: 4 Days, Location: None Selected Patient Instructions/Handouts: Chest Pain (DC) Activity/Diet/Wound Care/Special Instructions: Activity: as tolerated Diet: Heart Healthy Special Instructions: Check blood pressure twice daily and make a log to bring to your appointment. Please have blood work completed next Saturday or Saturday Discharge Disposition: HOME SELF-CARE
== END 2021-12-01 12:10 | disposition home or self-care (01) ==
LOC: EC 14:09 → 6NMEDSUR 18:31
PROVIDERS: ADMIT Internal Medicine; ATTEND Internal Medicine
DX: I16.0 Hypertensive urgency (principal); E78.5 Hyperlipidemia, unspecified; I10 Essential (primary) hypertension; M06.9 Rheumatoid arthritis, unspecified; F41.9 Anxiety disorder, unspecified; F17.210 Nicotine dependence, cigarettes, uncomplicated; Z96.653 Presence of artificial knee joint, bilateral; Z79.82 Long term (current) use of aspirin; Z79.899 Other long term (current) drug therapy
CPT/HCPCS: 96372; 96376; 96374; 99285; 36415; 93005; 80061; 80053; 83735; 84484; 85025; 85610; 85730; 71046; G0378 ×2; J0360; J1644

== ENCOUNTER 2024-09-24 10:15 | Day surgery (SDC) | payer MEDICARE, OTHER ==
[2024-09-22 16:21] VITALS: BMI 39.5
--- NOTE | 2024-09-24 07:32 | P.GSHP ---
History of Present Illness H&P Date: 09/24/24 CHIEF COMPLAINT: Colon screen HISTORY OF PRESENT ILLNESS: The patient is a 78-year-old male who presents for colon screen. Lower endoscopy was offered for further evaluation and management. PAST MEDICAL HISTORY: Please see list. PAST SURGICAL HISTORY: Please see list. MEDICATIONS: Please see list. ALLERGIES: Please see list. SOCIAL HISTORY: No illicit drug use FAMILY HISTORY: No reports of Crohn disease or ulcerative colitis. REVIEW OF ORGAN SYSTEMS: CONSTITUTIONAL: No reports of fevers or chills. PHYSICAL EXAM: VITAL SIGNS: Stable GENERAL: Well-developed pleasant in no acute distress. HEENT: No scleral icterus. Extraocular movements grossly intact. Moist buccal mucosa. NECK: Supple without lymphadenopathy. CHEST: Unlabored respirations. Equal bilateral excursions. CARDIOVASCULAR: Regular rate and rhythm. Distal 2+ pulses. ABDOMEN: Soft, nontender, nondistended. MUSCULOSKELETAL: No clubbing, cyanosis, or edema. ASSESSMENT: 1. Colon screen. PLAN: 1. Recommend proceeding with a lower endoscopy Past Medical History Past Medical History: Hyperlipidemia, Hypertension, Prostate Disorder, Rheumatoid Arthritis (RA) Additional Past Medical History / Comment(s): Hx of colon polyps, heart murmur, ventral hernia, "two cysts on prostate", "three cysts on each kidneys", nerve damage to both legs after back surgery, right drop foot, numbness in left foot, uses cane. History of Any Multi-Drug Resistant Organisms: None Reported Past Surgical History: Back Surgery, Joint Replacement Additional Past Surgical History / Comment(s): Bilateral knee replacement, wound closure on lower right thigh, colonoscopy. Past Anesthesia/Blood Transfusion Reactions: No Reported Reaction Smoking Status: Current every day smoker - Past Family History Mother Family Medical History: Cancer Medications and Allergies Home Medications Medication Instructions Recorded Confirmed Type Atorvastatin [Lipitor] 40 mg PO QAM 07/27/16 09/22/24 History Metoprolol Succinate [Toprol XL] 100 mg PO QAM 07/27/16 09/22/24 History Cholecalciferol [Vitamin D3 (25 50 mcg PO DAILY 11/30/21 09/22/24 History Mcg = 1000 Iu)] Empagliflozin [Jardiance] 10 mg PO QAM 09/22/24 09/22/24 History HYDROcodone/APAP 5-325MG [[place] 1 tab PO Q4HR PRN 09/22/24 09/22/24 History 5-325] Multivitamins, Thera [Multivitamin 1 tab PO DAILY 09/22/24 09/22/24 History (formulary)] Pregabalin 50 mg PO TID 09/22/24 09/22/24 History Valsartan [Diovan] 320 mg PO QAM 09/22/24 09/22/24 History amLODIPine BESYLATE 5 mg PO QAM 09/22/24 09/22/24 History hydroCHLOROthiazide [Hydrodiuril] 50 mg PO QAM 09/22/24 09/22/24 History Allergies Allergy/AdvReac Type Severity Reaction Status Date / Time No Known Allergies Allergy Verified 09/22/24 16:02
[~2024-09-24 10:15] MED LIST changes: -LACTATED RINGERS 1,000 ML IV SCH
[2024-09-24] MEDS: IV FLUID CONTINUATION 1,000 ML IV ONE (10:33)
[2024-09-24 10:45] VITALS: TEMP 97.6
[2024-09-24 11:00] LABS: Glucose,Whole Blood 132 mg/dL (70-110)
[2024-09-24] MEDS: LACTATED RINGERS 1,000 ML IV SCH (11:00)
[2024-09-24] MEDS ORDERED: LIDOCAINE 1% INJ 10MG/ML (20 ML MDV) ONE (11:46)
[2024-09-24] MEDS ORDERED: PROPOFOL 10 MG/ML 20 ML VIAL IV ONE (11:46)
[2024-09-24 12:09] VITALS: RESP 16
--- NOTE | 2024-09-24 12:16 | P.PCN ---
Date of Procedure: 09/24/24 Description of Procedure: PREOPERATIVE DIAGNOSIS: Personal history of colon polyps Colonoscopy screening POSTOPERATIVE DIAGNOSIS: Tubular adenoma ascending colon Sigmoid diverticulosis Internal hemorrhoids, grade 2 OPERATION: Colonoscopy to the ileocecal valve and appendiceal orifice, cecum Colonoscopy with cold forceps biopsy SURGEON: Jackeline Fleming MD. ANESTHESIA: MAC. INDICATIONS: The patient is an 78-year-old male who presents with history of colon polyps. Last colonoscopy 5 years. Benefits and risks were described and informed consent was obtained. DESCRIPTION OF PROCEDURE: The patient had undergone GoLytely prep. The patient had been brought into the operating room and laid in the left lateral decubitus position. After adequate intravenous sedation, the rectum was examined with 2% lidocaine jelly. The prostate was unremarkable. No external hemorrhoids were encountered. The rectal tone was within normal limits. No lesions were palpated in the rectal vault. An Olympus colonoscope was advanced until the cecum, ileocecal valve and appendiceal orifice were clearly viewed. The prep was poor to fair. Sigmoid diverticulosis was encountered. Colonic polyps were found and removed. No evidence of focal colitis was found. Retroflexion of the scope demonstrated grade 2 internal hemorrhoids without active bleeding or inflammation. The colon was desufflated. The patient had tolerated the procedure well. Withdrawal time was over 6 minutes. FINDINGS: Aronchick preparation quality scale 3+ (1-5) Internal hemorrhoids, grade 2 External hemorrhoids, grade 2. Pandiverticulosis No arteriovenous malformations. Sigmoid diverticulosis Removal of 2 polyps: - Cold forceps biopsy ascending colon x 2, 4 -5 mm adenoma. No focal colitis. RECOMMENDATIONS: Repeat colonoscopy 3 years, 2027 Plan - Discharge Summary Discharge Rx Participant: No New Discharge Prescriptions: Continue Metoprolol Succinate [Toprol XL] 100 mg PO QAM Atorvastatin [Lipitor] 40 mg PO QAM Pregabalin 50 mg PO TID HYDROcodone/APAP 5-325MG [[place] 5-325] 1 tab PO Q4HR PRN PRN Reason: Pain Multivitamins, Thera [Multivitamin (formulary)] 1 tab PO DAILY Cholecalciferol [Vitamin D3 (25 Mcg = 1000 Iu)] 50 mcg PO DAILY hydroCHLOROthiazide [Hydrodiuril] 50 mg PO QAM Valsartan [Diovan] 320 mg PO QAM amLODIPine BESYLATE 5 mg PO QAM Empagliflozin [Jardiance] 10 mg PO QAM Discharge Medication List Atorvastatin [Lipitor] 40 mg PO QAM 07/27/16 [History] Metoprolol Succinate [Toprol XL] 100 mg PO QAM 07/27/16 [History] Cholecalciferol [Vitamin D3 (25 Mcg = 1000 Iu)] 50 mcg PO DAILY 11/30/21 [History] Empagliflozin [Jardiance] 10 mg PO QAM 09/22/24 [History] HYDROcodone/APAP 5-325MG [[place] 5-325] 1 tab PO Q4HR PRN 09/22/24 [History] Multivitamins, Thera [Multivitamin (formulary)] 1 tab PO DAILY 09/22/24 [History] Pregabalin 50 mg PO TID 09/22/24 [History] Valsartan [Diovan] 320 mg PO QAM 09/22/24 [History] amLODIPine BESYLATE 5 mg PO QAM 09/22/24 [History] hydroCHLOROthiazide [Hydrodiuril] 50 mg PO QAM 09/22/24 [History] Follow up Appointment(s)/Referral(s): Jackeline Fleming MD [STAFF PHYSICIAN] - As Needed Patient Instructions/Handouts: Diverticulosis Diet (GEN), Diverticulosis (DC), Colorectal Polyps (GEN) Activity/Diet/Wound Care/Special Instructions: Repeat colonoscopy 3 years, 2027 Discharge Disposition: HOME SELF-CARE
[2024-09-24 12:27] VITALS: BP 127/64; PULSE 55
== END 2024-09-24 13:04 | disposition home or self-care (01) ==
LOC: ORWHC2ENDO 10:15
PROVIDERS: ATTEND Surgery Plastic and Reconstructive Surgery
DX: Z12.11 Encounter for screening for malignant neoplasm of colon (principal); D12.2 Benign neoplasm of ascending colon; K57.30 Diverticulosis of large intestine without perforation or abscess without bleeding; K64.1 Second degree hemorrhoids; K21.9 Gastro-esophageal reflux disease without esophagitis; I10 Essential (primary) hypertension; E78.5 Hyperlipidemia, unspecified; F41.9 Anxiety disorder, unspecified; F17.210 Nicotine dependence, cigarettes, uncomplicated; M06.9 Rheumatoid arthritis, unspecified; Z96.653 Presence of artificial knee joint, bilateral; Z79.84 Long term (current) use of oral hypoglycemic drugs; Z79.02 Long term (current) use of antithrombotics/antiplatelets; Z79.899 Other long term (current) drug therapy
CPT/HCPCS: 45380; J2003; J2704; 88305